=== PATIENT | male | born 1935 | race American Indian/Alaskan Native ===

== ENCOUNTER 2018-03-09 18:00 | Inpatient (IN) | payer MEDICARE ==
[2018-03-09 18:28] LABS: Hematocrit 28.6 % (35.5-45.6); Mean Corpuscular HGB Conc 32 % (32-34); Platelet Count 210 K/mm3 (140-440); Red Blood Count 4.72 M/mm3 (3.65-5.03)
[2018-03-09 18:31] LABS: Mean Corpuscular Hemoglobin 19 pg (28-32); Mean Corpuscular Volume 61 fl (84-94); Red Cell Distribution Width 24.1 % (13.2-15.2)
[2018-03-09] MEDS ORDERED: ASPIRIN PO ONE (18:31)
--- NOTE | 2018-03-09 18:32 | Emergency Department Report ---
ED Neuro Deficit HPI - General Chief Complaint: Neuro Symptoms/Deficit Stated Complaint: SLUR SPEECH Time Seen by Provider: 03/09/18 18:17 Source: patient, family Mode of arrival: Ambulatory Limitations: No Limitations - History of Present Illness Initial Comments: 82-year-old male with a past medical history of hypertension presents to the hospital with possible stroke symptoms. Patient lives at assisted living facility. His daughter lives and is present since 4 PM but they actually did not have a phone conversation until 5 PM. During this time she noticed that his face was twisted, his speech was not fluent and he hand he has difficulty communicating. Patient states he noticed it this morning after breakfast and thought that it would clear up throughout the day. No pain or previous stroke reported. Patient's compliant with his medications. Daughter states he does not take a daily aspirin. No pain reported. - Related Data Home Medications: Home Medications Medication Instructions Recorded Confirmed Last Taken prednisoLONE ACETATE [Omnipred 1% 1 - 2 drop OP QID 02/26/14 05/02/14 Unknown Eye Drops] Acetaminophen [Acetaminophen TAB] 500 mg PO BID 05/02/14 05/02/14 05/02/14 Docusate Sodium [Colace] 100 mg PO BID 05/02/14 05/02/14 05/02/14 HYDROcodone/ACETAMINOPHEN 5 mg PO Q4H PRN 05/02/14 05/02/14 Unknown [Hydrocodon-Acetaminophen 5-325] Losartan/Hydrochlorothiazide 50 mg PO DAILY 05/02/14 05/02/14 05/02/14 [Hyzaar 50-12.5 TAB] Previous Rx's Medication Instructions Recorded Last Taken Type Ciprofloxacin HCl [Ciprofloxacin 500 mg PO Q12H #20 tab 03/05/14 05/02/14 Rx TAB] Allergies/Adverse Reactions: Allergies Allergy/AdvReac Type Severity Reaction Status Date / Time No Known Allergies Allergy Unverified 04/07/13 09:22 ED Review of Systems ROS: Stated complaint: SLUR SPEECH Other details as noted in HPI Comment: All other systems reviewed and negative ED Past Medical Hx - Past Medical History Previous Medical History?: Yes Hx Hypertension: Yes Additional medical history: enlarged prostate - Surgical History Additional Surgical History: "prostate surgery" & "cataract surgery" - Social History Smoking Status: Never Smoker - Medications Home Medications: Home Medications Medication Instructions Recorded Confirmed Last Taken Type prednisoLONE ACETATE [Omnipred 1% 1 - 2 drop OP QID 02/26/14 05/02/14 Unknown History Eye Drops] Ciprofloxacin HCl [Ciprofloxacin 500 mg PO Q12H #20 tab 03/05/14 05/02/14 Rx TAB] Acetaminophen [Acetaminophen TAB] 500 mg PO BID 05/02/14 05/02/14 05/02/14 History Docusate Sodium [Colace] 100 mg PO BID 05/02/14 05/02/14 05/02/14 History HYDROcodone/ACETAMINOPHEN 5 mg PO Q4H PRN 05/02/14 05/02/14 Unknown History [Hydrocodon-Acetaminophen 5-325] Losartan/Hydrochlorothiazide 50 mg PO DAILY 05/02/14 05/02/14 05/02/14 History [Hyzaar 50-12.5 TAB] ED Neuro Physical Exam - General Limitations: No Limitations Suspected Stroke: Yes - NIHSS Assessment Interval: Baseline 1a. Level of Consciousness: alert/keenly responsive 1b. LOC Questions: answers both correctly 1c. LOC Commands: performs tasks correctly 2. Best Gaze: normal 3. Visual: no visual loss 4. Facial Palsy: minor paralysis (left) 5b. Motor Arm Right: no drift 5a. Motor Arm Left: no drift 6a. Motor Leg Left: no drift 6b. Motor Leg Right: no drift 7. Limb Ataxia: absent 8. Sensory: normal 9. Best Language: no aphasia 10. Dysarthria: mild/moderate dysarthria 11. Extinction/Inattention: no abnormality Total Score: 2 Stroke Severity: Minor Stroke - Other Other exam information: General: No limitations, patient is alert in no acute distress Head exam: Atraumatic, normocephalic Eyes exam: Normal appearance, pupils equal reactive to light, extraocular movements intact ENT: Moist mucous membrane Neck exam: Normal inspection, full range of motion, no meningismus nontender Respiratory exam: Clear to auscultation bilateral, no wheezes, rales, crackles Cardiovascular: Normal rate and rhythm, normal heart sounds Abdomen: Soft, nondistended, and nontender, with normal bowel sounds, no rebound, or guarding Extremity: Full range of motion normal inspection no deformity Back: Normal Inspection, full range of motion, no tenderness Neurologic: Alert, oriented x3, C and I a stroke scale Psychiatric: normal affect, normal mood Skin: Warm, dry, intact ED Course Vital Signs 10/05/18 10/05/18 10/05/18 18:04 18:28 18:30 Pulse Rate 75 78 Respiratory 18 16 16 Rate Blood Pressure 159/96 Blood Pressure 162/96 [Left] O2 Sat by Pulse 97 98 Oximetry - Consultations Consultation #1: 03/09/18 18:20 case d/w Dr Brown, rec admit for cva workup - Lab Data Result diagrams: 03/09/18 18:24 03/09/18 18:24 Lab Results 03/09/18 03/09/18 03/09/18 Range/Units 18:24 18:24 18:24 WBC 5.2 (4.5-11.0) K/mm3 RBC 4.72 (3.65-5.03) M/mm3 Hgb 9.0 L (11.8-15.2) gm/dl Hct 28.6 L (35.5-45.6) % MCV 61 L (84-94) fl MCH 19 L (28-32) pg MCHC 32 (32-34) % RDW 24.1 H (13.2-15.2) % Plt Count 210 (140-440) K/mm3 Lymph % (Auto) Supervisor Propellant Charge Loading Seg Neutrophils % Supervisor Propellant Charge Loading PT 14.1 (12.2-14.9) Sec. INR 1.04 (0.87-1.13) APTT 30.0 (24.2-36.6) Sec. Thrombin Time (15.1-19.6) Sec. Sodium 144 (137-145) mmol/L Potassium 3.9 (3.6-5.0) mmol/L Chloride 108.7 H (98-107) mmol/L Carbon Dioxide 25 (22-30) mmol/L Anion Gap 14 mmol/L BUN 8 L (9-20) mg/dL Creatinine 1.0 (0.8-1.5) mg/dL Estimated GFR > 60 ml/min BUN/Creatinine Ratio 8 % Glucose 98 (75-100) mg/dL Calcium 8.9 (8.4-10.2) mg/dL Troponin T < 0.010 (0.00-0.029) ng/mL 03/09/18 Range/Units 18:24 WBC (4.5-11.0) K/mm3 RBC (3.65-5.03) M/mm3 Hgb (11.8-15.2) gm/dl Hct (35.5-45.6) % MCV (84-94) fl MCH (28-32) pg MCHC (32-34) % RDW (13.2-15.2) % Plt Count (140-440) K/mm3 Lymph % (Auto) Seg Neutrophils % PT (12.2-14.9) Sec. INR (0.87-1.13) APTT (24.2-36.6) Sec. Thrombin Time 17.0 (15.1-19.6) Sec. 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 White matter changes most likely representing areas of chronic post ischemic demyelination/small vessel disease - Medical Decision Making Patient presents with neurologic deficits outside of the time period for TPA Patient passed a swallow screen and aspirin provided Case discussed with the tele neurologist Patient will be admitted to the hospital for further stroke workup and evaluation - Differential Diagnosis CVA, ICH, TIA, intracranial mass Critical Care Time: No Critical care attestation.: If time is entered above; I have spent that time in minutes in the direct care of this critically ill patient, excluding procedure time. ED Disposition Clinical Impression: Slurred speech, Facial droop, HTN (hypertension) Disposition: OP ADMIT IP TO THIS HOSP Is pt being admited?: Yes Does the pt Need Aspirin: Yes Condition: Stable Time of Disposition: 19:02 (Dr De La Cruz/hosp)
--- NOTE | 2018-03-09 18:32 | Cat Scan Report ---
FINAL REPORT EXAM: CT HEAD/BRAIN WO CON HISTORY: neuro deficits < 6hrs or sx present upon awakening TECHNIQUE: 2.5 millimeter axial images from the skullbase to the vertex. Comparison: None FINDINGS: Low attenuation in the subcortical and deep white matter of the cerebral hemispheres bilaterally most likely represent areas of chronic post ischemic demyelination/small vessel disease. There is no CT evidence of an acute intracranial process and no evidence of intracranial hemorrhage or mass effect. The ventricles are normal size. There is atherosclerotic vascular calcification of the internal carotid arteries bilaterally and left vertebral artery and basilar artery at the skullbase. The visualized portions of the orbits, paranasal and mastoid sinuses are unremarkable. The bony structures are unremarkable in appearance. IMPRESSION: 1. No evidence of an acute intracranial process, intracranial hemorrhage or mass effect. 2. White matter changes that most likely represent areas of chronic post ischemic demyelination/small vessel disease. If there is a clinical suspicion of acute cerebral ischemia, MRI brain may be helpful for further evaluation. The findings of no CT evidence of acute infarct and no evidence of intracranial hemorrhage were relayed to Dr. Martínez at 6:30 p.m. March 09, 2018.
[2018-03-09 18:41] LABS: INR 1.04 (0.87-1.13)
[2018-03-09 18:52] LABS: BUN/Creatinine Ratio 8; Blood Urea Nitrogen 8 mg/dL (9-20); Calcium 8.9 mg/dL (8.4-10.2); Hemolysis Index 10
[2018-03-09 19:27] LABS: Anisocytosis 3+; Hypochromasia 1+; Macrocytosis 1+; Schistocytes Rare; Total Cells Counted 100
[2018-03-09 19:28] LABS: Platelet Estimate A; Stomatocytes Rare; Target Cells Few
[2018-03-09] MEDS ORDERED: SODIUM CHLORIDE FLUSH SYRINGE 10 ML IV PRN (22:58)
[2018-03-09] MEDS ORDERED: APRESOLINE IV PRN (22:58)
[2018-03-09] MEDS ORDERED: ZOFRAN IV PRN (23:19)
[2018-03-09] MEDS ORDERED: TYLENOL PO PRN (23:19)
--- NOTE | 2018-03-10 01:00 | History and Physical Report ---
History of Present Illness Date of examination: 03/09/18 Date of admission: 03/09/18 19:16 Chief complaint: slurred speech History of present illness: Pt is an 82-year-old male with PMHx of hypertension who presents to the ER with c/o slurred speech and difficulty speaking x1 day. Patient resides in an assisted living facility, he states that his slurred speech started in the morning and didn't get better. Pt's daughter states that she noticed the symptoms in the afternoon, pt's speech was slurred and he was having difficulty to speak, the daughter ask to bring him to the hospital to be evaluated for possible stroke symptoms. Pt was seen in room, alert and orientated, he is able to provide medical history, memory intact, he admits to slurred speech, but states that he has no trouble finding words, he denies LOC, denies headache, denies dizziness, denies any recent illness. Pt denies history of previous stroke, he denies numbness or weakness. In the ER his CT scan was negative, he was admitted for TIA to r/o CVA. Past History Past Medical History: hypertension, other (BPH) Past Surgical History: No surgical history Social history: other (lives in an assisted living facility) Family history: no significant family history Medications and Allergies Allergies Allergy/AdvReac Type Severity Reaction Status Date / Time No Known Allergies Allergy Unverified 04/07/13 09:22 Home Medications Medication Instructions Recorded Confirmed Last Taken Type prednisoLONE ACETATE [Omnipred 1% 1 - 2 drop OP QID 02/26/14 05/02/14 Unknown History Eye Drops] Ciprofloxacin HCl [Ciprofloxacin 500 mg PO Q12H #20 tab 03/05/14 05/02/14 Rx TAB] Acetaminophen [Acetaminophen TAB] 500 mg PO BID 05/02/14 05/02/14 05/02/14 History Docusate Sodium [Colace] 100 mg PO BID 05/02/14 05/02/14 05/02/14 History HYDROcodone/ACETAMINOPHEN 5 mg PO Q4H PRN 05/02/14 05/02/14 Unknown History [Hydrocodon-Acetaminophen 5-325] Losartan/Hydrochlorothiazide 50 mg PO DAILY 05/02/14 05/02/14 05/02/14 History [Hyzaar 50-12.5 TAB] Active Meds: Active Medications Acetaminophen (Tylenol) 650 mg PO Q4H PRN PRN Reason: Pain MILD(1-3)/Fever >100.5/YADAV Atorvastatin Calcium (Lipitor) 40 mg PO QHS [place]KE Hydralazine HCl (Apresoline) 5 mg IV Q6H PRN PRN Reason: Keep SBP between 160-185 mm Hg Ondansetron HCl (Zofran) 4 mg IV Q8H PRN PRN Reason: Nausea And Vomiting Sodium Chloride (Sodium Chloride Flush Syringe 10 Ml) 10 ml IV PRN PRN PRN Reason: LINE FLUSH Review of Systems Ears, nose, mouth and throat: other (slurred speech) Exam - Constitutional Vitals: Temp Pulse Resp BP Pulse Ox 97.9 F 67 18 131/78 100 03/10/18 00:04 03/10/18 00:04 03/10/18 00:04 03/10/18 00:04 03/10/18 00:04 General appearance: Present: no acute distress - EENT Eyes: Present: EOM intact ENT: hearing intact - Neck Neck: Present: normal ROM - Respiratory Respiratory effort: normal - Cardiovascular Rhythm: regular - Extremities Extremities: pulses symmetrical, No edema, normal color Peripheral Pulses: within normal limits - Abdominal General gastrointestinal: Present: soft, non-tender, non-distended, normal bowel sounds - Rectal Rectal Exam: deferred - Integumentary Integumentary: Present: warm, dry - Musculoskeletal Musculoskeletal: generalized weakness - Psychiatric Psychiatric: cooperative - Neurologic Neurologic: moves all extremities Results - Labs CBC & Chem 7: 03/09/18 18:24 03/09/18 18:24 Labs: Laboratory Last Values WBC 5.2 K/mm3 (4.5-11.0) 03/09/18 18:24 RBC 4.72 M/mm3 (3.65-5.03) 03/09/18 18:24 Hgb 9.0 gm/dl (11.8-15.2) L 03/09/18 18:24 Hct 28.6 % (35.5-45.6) L 03/09/18 18:24 MCV 61 fl (84-94) L 03/09/18 18:24 MCH 19 pg (28-32) L 03/09/18 18:24 MCHC 32 % (32-34) 03/09/18 18:24 RDW 24.1 % (13.2-15.2) H 03/09/18 18:24 Plt Count 210 K/mm3 (140-440) 03/09/18 18:24 Lymph % (Auto) Audiovisual Production Specialist 03/09/18 18:24 Add Manual Diff Complete 03/09/18 18:24 Total Counted 100 03/09/18 18:24 Seg Neutrophils % Audiovisual Production Specialist 03/09/18 18:24 Seg Neuts % (Manual) 30.0 % (40.0-70.0) L 03/09/18 18:24 Band Neutrophils % 0 % 03/09/18 18:24 Lymphocytes % (Manual) 49.0 % (13.4-35.0) H 03/09/18 18:24 Reactive Lymphs % (Man) 0 % 03/09/18 18:24 Monocytes % (Manual) 9.0 % (0.0-7.3) H 03/09/18 18:24 Eosinophils % (Manual) 9.0 % (0.0-4.3) H 03/09/18 18:24 Basophils % (Manual) 3.0 % (0.0-1.8) H 03/09/18 18:24 Metamyelocytes % 0 % 03/09/18 18:24 Myelocytes % 0 % 03/09/18 18:24 Promyelocytes % 0 % 03/09/18 18:24 Blast Cells % 0 % 03/09/18 18:24 Nucleated RBC % Not Reportable 03/09/18 18:24 Seg Neutrophils # Man 1.6 K/mm3 (1.8-7.7) L 03/09/18 18:24 Band Neutrophils # 0.0 K/mm3 03/09/18 18:24 Lymphocytes # (Manual) 2.5 K/mm3 (1.2-5.4) 03/09/18 18:24 Abs React Lymphs (Man) 0.0 K/mm3 03/09/18 18:24 Monocytes # (Manual) 0.5 K/mm3 (0.0-0.8) 03/09/18 18:24 Eosinophils # (Manual) 0.5 K/mm3 (0.0-0.4) H 03/09/18 18:24 Basophils # (Manual) 0.2 K/mm3 (0.0-0.1) H 03/09/18 18:24 Metamyelocytes # 0.0 K/mm3 03/09/18 18:24 Myelocytes # 0.0 K/mm3 03/09/18 18:24 Promyelocytes # 0.0 K/mm3 03/09/18 18:24 Blast Cells # 0.0 K/mm3 03/09/18 18:24 WBC Morphology Not Reportable 03/09/18 18:24 Hypersegmented Neuts Not Reportable 03/09/18 18:24 Hyposegmented Neuts Not Reportable 03/09/18 18:24 Hypogranular Neuts Not Reportable 03/09/18 18:24 Smudge Cells Not Reportable 03/09/18 18:24 Toxic Granulation Not Reportable 03/09/18 18:24 Toxic Vacuolation Not Reportable 03/09/18 18:24 Dohle Bodies Not Reportable 03/09/18 18:24 Pelger-Huet Anomaly Not Reportable 03/09/18 18:24 Jackie Rods Not Reportable 03/09/18 18:24 Platelet Estimate A 03/09/18 18:24 Clumped Platelets Not Reportable 03/09/18 18:24 Plt Clumps, EDTA Not Reportable 03/09/18 18:24 Large Platelets Not Reportable 03/09/18 18:24 Giant Platelets Not Reportable 03/09/18 18:24 Platelet Satelliting Not Reportable 03/09/18 18:24 Plt Morphology Comment Not Reportable 03/09/18 18:24 RBC Morphology Not Reportable 03/09/18 18:24 Dimorphic RBCs Not Reportable 03/09/18 18:24 Polychromasia Not Reportable 03/09/18 18:24 Hypochromasia 1+ 03/09/18 18:24 Poikilocytosis Not Reportable 03/09/18 18:24 Anisocytosis 3+ 03/09/18 18:24 Microcytosis 2+ 03/09/18 18:24 Macrocytosis 1+ 03/09/18 18:24 Spherocytes Not Reportable 03/09/18 18:24 Pappenheimer Bodies Not Reportable 03/09/18 18:24 Sickle Cells Not Reportable 03/09/18 18:24 Target Cells Few 03/09/18 18:24 Tear Drop Cells Not Reportable 03/09/18 18:24 Ovalocytes Not Reportable 03/09/18 18:24 Stomatocytes Rare 03/09/18 18:24 Helmet Cells Not Reportable 03/09/18 18:24 [place] Bodies Not Reportable 03/09/18 18:24 [place] Rings Not Reportable 03/09/18 18:24 [place] Cells Not Reportable 03/09/18 18:24 Bite Cells Not Reportable 03/09/18 18:24 Crenated Cell Not Reportable 03/09/18 18:24 Elliptocytes Few 03/09/18 18:24 Acanthocytes (Spur) Not Reportable 03/09/18 18:24 Rouleaux Not Reportable 03/09/18 18:24 Hemoglobin C Crystals Not Reportable 03/09/18 18:24 Schistocytes Rare 03/09/18 18:24 Malaria parasites Not Reportable 03/09/18 18:24 Kareem Bodies Not Reportable 03/09/18 18:24 Hem Pathologist Commnt No 03/09/18 18:24 PT 14.1 Sec. (12.2-14.9) 03/09/18 18:24 INR 1.04 (0.87-1.13) 03/09/18 18:24 APTT 30.0 Sec. (24.2-36.6) 03/09/18 18:24 Thrombin Time 17.0 Sec. (15.1-19.6) 03/09/18 18:24 Sodium 144 mmol/L (137-145) 03/09/18 18:24 Potassium 3.9 mmol/L (3.6-5.0) 03/09/18 18:24 Chloride 108.7 mmol/L (98-107) H 03/09/18 18:24 Carbon Dioxide 25 mmol/L (22-30) 03/09/18 18:24 Anion Gap 14 mmol/L 03/09/18 18:24 BUN 8 mg/dL (9-20) L 03/09/18 18:24 Creatinine 1.0 mg/dL (0.8-1.5) 03/09/18 18:24 Estimated GFR > 60 ml/min 03/09/18 18:24 BUN/Creatinine Ratio 8 % 03/09/18 18:24 Glucose 98 mg/dL (75-100) 03/09/18 18:24 POC Glucose 116 (70-105) H 03/09/18 18:03 Calcium 8.9 mg/dL (8.4-10.2) 03/09/18 18:24 Troponin T < 0.010 ng/mL (0.00-0.029) 03/09/18 18:24 Assessment and Plan Assessment and plan: 1. TIA/r/o CVA 2. Uncontrolled HTN 3. BPH Plan Admit to [facility] Neuro check q4hrs Monitor VS, BP MRI of the brain to f/u CT scan Bilateral carotid US 2D echocardiogram Speech therapy eval in am for slurred speech PT/OT to eval in am Lipid panel PRN Zofran, tylenol Hydralyzine PRN for BP control Resume home meds DVT prophylaxis with SD Further plan per hospital course Pt's condition and plan of care of care discussed with the attending Advance Directives: Yes VTE prophylaxis?: Chemical Plan of care discussed with patient/family: Yes
[2018-03-10 01:23] LABS: Creatine Kinase MB 1.3 ng/mL (0.0-4.0)
[2018-03-10 05:44] LABS: Chol/HDL Ratio 3.25 %
[2018-03-10 06:08] LABS: Creatine Kinase MB 1.3 ng/mL (0.0-4.0)
[2018-03-10] MEDS ORDERED: ASPIRIN PR SCH (10:00)
[2018-03-10] MEDS: ASPIRIN PO SCH (13:59)
--- NOTE | 2018-03-10 14:01 | Progress Note ---
Assessment and Plan Assessment and plan: TIA r/o CVA -On stroke protocol -CT head negative -MRI brain, echocardiogram and carotid Doppler ultrasound pending Uncontrolled HTN -BP Improved Chronic anemia -H/H stable Disp: For discharge after pending investigative testings are completed. History Interval history: Patient reports feeling better. His slurred speech has improved. Hospitalist Physical - Constitutional Vitals: Temp Pulse Resp BP Pulse Ox 97.9 F 81 18 133/78 100 03/10/18 12:11 03/10/18 11:24 03/10/18 12:11 03/10/18 12:11 03/10/18 10:00 General appearance: Present: no acute distress - EENT Eyes: Present: PERRL, EOM intact ENT: hearing intact, clear oral mucosa - Neck Neck: Present: supple - Respiratory Respiratory effort: normal Respiratory: bilateral: CTA - Cardiovascular Rhythm: regular Heart Sounds: Present: S1 & S2 - Extremities Extremities: No edema - Abdominal General gastrointestinal: soft, non-tender, non-distended, normal bowel sounds - Neurologic Neurologic: moves all extremities Results - Labs CBC & Chem 7: 03/09/18 18:24 03/09/18 18:24 Labs: Laboratory Last Values WBC 5.2 K/mm3 (4.5-11.0) 03/09/18 18:24 RBC 4.72 M/mm3 (3.65-5.03) 03/09/18 18:24 Hgb 9.0 gm/dl (11.8-15.2) L 03/09/18 18:24 Hct 28.6 % (35.5-45.6) L 03/09/18 18:24 MCV 61 fl (84-94) L 03/09/18 18:24 MCH 19 pg (28-32) L 03/09/18 18:24 MCHC 32 % (32-34) 03/09/18 18:24 RDW 24.1 % (13.2-15.2) H 03/09/18 18:24 Plt Count 210 K/mm3 (140-440) 03/09/18 18:24 Lymph % (Auto) Electrician Crane Maintenance 03/09/18 18:24 Add Manual Diff Complete 03/09/18 18:24 Total Counted 100 03/09/18 18:24 Seg Neutrophils % Electrician Crane Maintenance 03/09/18 18:24 Seg Neuts % (Manual) 30.0 % (40.0-70.0) L 03/09/18 18:24 Band Neutrophils % 0 % 03/09/18 18:24 Lymphocytes % (Manual) 49.0 % (13.4-35.0) H 18 18:24 Reactive Lymphs % (Man) 0 % 03/09/18 18:24 Monocytes % (Manual) 9.0 % (0.0-7.3) H 03/09/18 18:24 Eosinophils % (Manual) 9.0 % (0.0-4.3) H 03/09/18 18:24 Basophils % (Manual) 3.0 % (0.0-1.8) H 03/09/18 18:24 Metamyelocytes % 0 % 03/09/18 18:24 Myelocytes % 0 % 03/09/18 18:24 Promyelocytes % 0 % 03/09/18 18:24 Blast Cells % 0 % 03/09/18 18:24 Nucleated RBC % Not Reportable 03/09/18 18:24 Seg Neutrophils # Man 1.6 K/mm3 (1.8-7.7) L 03/09/18 18:24 Band Neutrophils # 0.0 K/mm3 03/09/18 18:24 Lymphocytes # (Manual) 2.5 K/mm3 (1.2-5.4) 03/09/18 18:24 Abs React Lymphs (Man) 0.0 K/mm3 03/09/18 18:24 Monocytes # (Manual) 0.5 K/mm3 (0.0-0.8) 03/09/18 18:24 Eosinophils # (Manual) 0.5 K/mm3 (0.0-0.4) H 03/09/18 18:24 Basophils # (Manual) 0.2 K/mm3 (0.0-0.1) H 03/09/18 18:24 Metamyelocytes # 0.0 K/mm3 03/09/18 18:24 Myelocytes # 0.0 K/mm3 03/09/18 18:24 Promyelocytes # 0.0 K/mm3 03/09/18 18:24 Blast Cells # 0.0 K/mm3 03/09/18 18:24 WBC Morphology Not Reportable 03/09/18 18:24 Hypersegmented Neuts Not Reportable 03/09/18 18:24 Hyposegmented Neuts Not Reportable 03/09/18 18:24 Hypogranular Neuts Not Reportable 03/09/18 18:24 Smudge Cells Not Reportable 03/09/18 18:24 Toxic Granulation Not Reportable 03/09/18 18:24 Toxic Vacuolation Not Reportable 03/09/18 18:24 Dohle Bodies Not Reportable 03/09/18 18:24 Pelger-Huet Anomaly Not Reportable 03/09/18 18:24 Jackie Rods Not Reportable 03/09/18 18:24 Platelet Estimate A 03/09/18 18:24 Clumped Platelets Not Reportable 03/09/18 18:24 Plt Clumps, EDTA Not Reportable 03/09/18 18:24 Large Platelets Not Reportable 03/09/18 18:24 Giant Platelets Not Reportable 03/09/18 18:24 Platelet Satelliting Not Reportable 03/09/18 18:24 Plt Morphology Comment Not Reportable 03/09/18 18:24 RBC Morphology Not Reportable 03/09/18 18:24 Dimorphic RBCs Not Reportable 03/09/18 18:24 Polychromasia Not Reportable 03/09/18 18:24 Hypochromasia 1+ 03/09/18 18:24 Poikilocytosis Not Reportable 03/09/18 18:24 Anisocytosis 3+ 03/09/18 18:24 Microcytosis 2+ 03/09/18 18:24 Macrocytosis 1+ 03/09/18 18:24 Spherocytes Not Reportable 03/09/18 18:24 Pappenheimer Bodies Not Reportable 03/09/18 18:24 Sickle Cells Not Reportable 03/09/18 18:24 Target Cells Few 03/09/18 18:24 Tear Drop Cells Not Reportable 03/09/18 18:24 Ovalocytes Not Reportable 03/09/18 18:24 Stomatocytes Rare 03/09/18 18:24 Helmet Cells Not Reportable 03/09/18 18:24 [place] Bodies Not Reportable 03/09/18 18:24 [place] Rings Not Reportable 03/09/18 18:24 [place] Cells Not Reportable 03/09/18 18:24 Bite Cells Not Reportable 03/09/18 18:24 Crenated Cell Not Reportable 03/09/18 18:24 Elliptocytes Few 03/09/18 18:24 Acanthocytes (Spur) Not Reportable 03/09/18 18:24 Rouleaux Not Reportable 03/09/18 18:24 Hemoglobin C Crystals Not Reportable 03/09/18 18:24 Schistocytes Rare 03/09/18 18:24 Malaria parasites Not Reportable 03/09/18 18:24 Kareem Bodies Not Reportable 03/09/18 18:24 Hem Pathologist Commnt No 03/09/18 18:24 PT 14.1 Sec. (12.2-14.9) 03/09/18 18:24 INR 1.04 (0.87-1.13) 03/09/18 18:24 APTT 30.0 Sec. (24.2-36.6) 03/09/18 18:24 Thrombin Time 17.0 Sec. (15.1-19.6) 03/09/18 18:24 Sodium 144 mmol/L (137-145) 03/09/18 18:24 Potassium 3.9 mmol/L (3.6-5.0) 03/09/18 18:24 Chloride 108.7 mmol/L (98-107) H 03/09/18 18:24 Carbon Dioxide 25 mmol/L (22-30) 03/09/18 18:24 Anion Gap 14 mmol/L 03/09/18 18:24 BUN 8 mg/dL (9-20) L 03/09/18 18:24 Creatinine 1.0 mg/dL (0.8-1.5) 03/09/18 18:24 Estimated GFR > 60 ml/min 03/09/18 18:24 BUN/Creatinine Ratio 8 % 03/09/18 18:24 Glucose 98 mg/dL (75-100) 03/09/18 18:24 POC Glucose 95 (70-105) 03/10/18 12:10 Calcium 8.9 mg/dL (8.4-10.2) 03/09/18 18:24 Total Creatine Kinase 171 units/L (55-170) H 03/10/18 04:59 CK-MB (CK-2) 1.3 ng/mL (0.0-4.0) 03/10/18 04:59 CK-MB (CK-2) Rel Index 0.7 (0-4) 03/10/18 04:59 Troponin T < 0.010 ng/mL (0.00-0.029) 03/09/18 18:24 Triglycerides 58 mg/dL (2-149) 03/10/18 03:57 Cholesterol 127 mg/dL (50-199) 03/10/18 03:57 LDL Cholesterol Direct 80 mg/dL (50-130) 03/10/18 03:57 HDL Cholesterol 39 mg/dL (40-59) L 03/10/18 03:57 Cholesterol/HDL Ratio 3.25 % 03/10/18 03:57
[2018-03-11] MEDS: ASPIRIN PO SCH (09:16)
--- NOTE | 2018-03-11 13:44 | Progress Note ---
Assessment and Plan Assessment and plan: TIA r/o CVA -On stroke protocol -CT head negative -MRI brain, echocardiogram and carotid Doppler ultrasound pending -Discussed finding with the daughter anticipate discharge in am Uncontrolled HTN -BP Improved Chronic anemia -H/H stable Disp: For discharge after pending investigative testings are completed. History Interval history: Patient seen and examined, in no acute distress. Daughter at bedside. Hospitalist Physical - Constitutional Vitals: Temp Pulse Resp BP Pulse Ox 98.4 F 88 20 155/88 95 03/11/18 08:00 03/11/18 10:00 03/11/18 10:00 03/11/18 08:00 03/11/18 10:00 General appearance: Present: no acute distress Results - Labs CBC & Chem 7: 03/09/18 18:24 03/09/18 18:24 Labs: Laboratory Last Values WBC 5.2 K/mm3 (4.5-11.0) 03/09/18 18:24 RBC 4.72 M/mm3 (3.65-5.03) 03/09/18 18:24 Hgb 9.0 gm/dl (11.8-15.2) L 03/09/18 18:24 Hct 28.6 % (35.5-45.6) L 03/09/18 18:24 MCV 61 fl (84-94) L 03/09/18 18:24 MCH 19 pg (28-32) L 03/09/18 18:24 MCHC 32 % (32-34) 03/09/18 18:24 RDW 24.1 % (13.2-15.2) H 03/09/18 18:24 Plt Count 210 K/mm3 (140-440) 03/09/18 18:24 Lymph % (Auto) Science Job Titles 03/09/18 18:24 Add Manual Diff Complete 03/09/18 18:24 Total Counted 100 03/09/18 18:24 Seg Neutrophils % Science Job Titles 03/09/18 18:24 Seg Neuts % (Manual) 30.0 % (40.0-70.0) L 03/09/18 18:24 Band Neutrophils % 0 % 03/09/18 18:24 Lymphocytes % (Manual) 49.0 % (13.4-35.0) H 03/09/18 18:24 Reactive Lymphs % (Man) 0 % 03/09/18 18:24 Monocytes % (Manual) 9.0 % (0.0-7.3) H 03/09/18 18:24 Eosinophils % (Manual) 9.0 % (0.0-4.3) H 03/09/18 18:24 Basophils % (Manual) 3.0 % (0.0-1.8) H 03/09/18 18:24 Metamyelocytes % 0 % 03/09/18 18:24 Myelocytes % 0 % 03/09/18 18:24 Promyelocytes % 0 % 03/09/18 18:24 Blast Cells % 0 % 03/09/18 18:24 Nucleated RBC % Not Reportable 03/09/18 18:24 Seg Neutrophils # Man 1.6 K/mm3 (1.8-7.7) L 03/09/18 18:24 Band Neutrophils # 0.0 K/mm3 03/09/18 18:24 Lymphocytes # (Manual) 2.5 K/mm3 (1.2-5.4) 03/09/18 18:24 Abs React Lymphs (Man) 0.0 K/mm3 03/09/18 18:24 Monocytes # (Manual) 0.5 K/mm3 (0.0-0.8) 03/09/18 18:24 Eosinophils # (Manual) 0.5 K/mm3 (0.0-0.4) H 03/09/18 18:24 Basophils # (Manual) 0.2 K/mm3 (0.0-0.1) H 03/09/18 18:24 Metamyelocytes # 0.0 K/mm3 03/09/18 18:24 Myelocytes # 0.0 K/mm3 03/09/18 18:24 Promyelocytes # 0.0 K/mm3 03/09/18 18:24 Blast Cells # 0.0 K/mm3 03/09/18 18:24 WBC Morphology Not Reportable 03/09/18 18:24 Hypersegmented Neuts Not Reportable 03/09/18 18:24 Hyposegmented Neuts Not Reportable 03/09/18 18:24 Hypogranular Neuts Not Reportable 03/09/18 18:24 Smudge Cells Not Reportable 03/09/18 18:24 Toxic Granulation Not Reportable 03/09/18 18:24 Toxic Vacuolation Not Reportable 03/09/18 18:24 Dohle Bodies Not Reportable 03/09/18 18:24 Pelger-Huet Anomaly Not Reportable 03/09/18 18:24 Jackie Rods Not Reportable 03/09/18 18:24 Platelet Estimate A 03/09/18 18:24 Clumped Platelets Not Reportable 03/09/18 18:24 Plt Clumps, EDTA Not Reportable 03/09/18 18:24 Large Platelets Not Reportable 03/09/18 18:24 Giant Platelets Not Reportable 03/09/18 18:24 Platelet Satelliting Not Reportable 03/09/18 18:24 Plt Morphology Comment Not Reportable 03/09/18 18:24 RBC Morphology Not Reportable 03/09/18 18:24 Dimorphic RBCs Not Reportable 03/09/18 18:24 Polychromasia Not Reportable 03/09/18 18:24 Hypochromasia 1+ 03/09/18 18:24 Poikilocytosis Not Reportable 03/09/18 18:24 Anisocytosis 3+ 03/09/18 18:24 Microcytosis 2+ 03/09/18 18:24 Macrocytosis 1+ 03/09/18 18:24 Spherocytes Not Reportable 03/09/18 18:24 Pappenheimer Bodies Not Reportable 03/09/18 18:24 Sickle Cells Not Reportable 03/09/18 18:24 Target Cells Few 03/09/18 18:24 Tear Drop Cells Not Reportable 03/09/18 18:24 Ovalocytes Not Reportable 03/09/18 18:24 Stomatocytes Rare 03/09/18 18:24 Helmet Cells Not Reportable 03/09/18 18:24 Lyons-Stout Bodies Not Reportable 03/09/18 18:24 [place] Rings Not Reportable 03/09/18 18:24 [place] Cells Not Reportable 03/09/18 18:24 Bite Cells Not Reportable 03/09/18 18:24 Crenated Cell Not Reportable 03/09/18 18:24 Elliptocytes Few 03/09/18 18:24 Acanthocytes (Spur) Not Reportable 03/09/18 18:24 Rouleaux Not Reportable 03/09/18 18:24 Hemoglobin C Crystals Not Reportable 03/09/18 18:24 Schistocytes Rare 03/09/18 18:24 Malaria parasites Not Reportable 03/09/18 18:24 Kareem Bodies Not Reportable 03/09/18 18:24 Hem Pathologist Commnt No 03/09/18 18:24 PT 14.1 Sec. (12.2-14.9) 03/09/18 18:24 INR 1.04 (0.87-1.13) 03/09/18 18:24 APTT 30.0 Sec. (24.2-36.6) 03/09/18 18:24 Thrombin Time 17.0 Sec. (15.1-19.6) 03/09/18 18:24 Sodium 144 mmol/L (137-145) 03/09/18 18:24 Potassium 3.9 mmol/L (3.6-5.0) 03/09/18 18:24 Chloride 108.7 mmol/L (98-107) H 03/09/18 18:24 Carbon Dioxide 25 mmol/L (22-30) 03/09/18 18:24 Anion Gap 14 mmol/L 03/09/18 18:24 BUN 8 mg/dL (9-20) L 03/09/18 18:24 Creatinine 1.0 mg/dL (0.8-1.5) 03/09/18 18:24 Estimated GFR > 60 ml/min 03/09/18 18:24 BUN/Creatinine Ratio 8 % 03/09/18 18:24 Glucose 98 mg/dL (75-100) 03/09/18 18:24 POC Glucose 95 (70-105) 03/10/18 12:10 Calcium 8.9 mg/dL (8.4-10.2) 03/09/18 18:24 Total Creatine Kinase 171 units/L (55-170) H 03/10/18 04:59 CK-MB (CK-2) 1.3 ng/mL (0.0-4.0) 03/10/18 04:59 CK-MB (CK-2) Rel Index 0.7 (0-4) 03/10/18 04:59 Troponin T < 0.010 ng/mL (0.00-0.029) 03/09/18 18:24 Triglycerides 58 mg/dL (2-149) 03/10/18 03:57 Cholesterol 127 mg/dL (50-199) 03/10/18 03:57 LDL Cholesterol Direct 80 mg/dL (50-130) 03/10/18 03:57 HDL Cholesterol 39 mg/dL (40-59) L 03/10/18 03:57 Cholesterol/HDL Ratio 3.25 % 03/10/18 03:57
--- NOTE | 2018-03-11 13:45 | Progress Note ---
Assessment and Plan Assessment and plan: TIA r/o CVA -On stroke protocol -CT head negative -MRI brain, echocardiogram and carotid Doppler ultrasound pending -Discussed finding with the daughter anticipate discharge in am Uncontrolled HTN -BP Improved Chronic anemia -H/H stable Disp: For discharge after pending investigative testings are completed. History Interval history: Patient seen and examined, in no acute distress. Daughter at bedside. Hospitalist Physical - Constitutional Vitals: Temp Pulse Resp BP Pulse Ox 98.4 F 88 20 155/88 95 03/11/18 08:00 03/11/18 10:00 03/11/18 10:00 03/11/18 08:00 03/11/18 10:00 General appearance: Present: no acute distress, well-nourished - EENT Eyes: Present: PERRL, EOM intact - Neck Neck: Present: supple, normal ROM - Respiratory Respiratory effort: normal - Cardiovascular Rhythm: regular Heart Sounds: Present: S1 & S2. Absent: systolic murmur - Extremities Extremities: no ischemia, pulses intact, pulses symmetrical, No edema, normal temperature, normal color, Full ROM Peripheral Pulses: within normal limits - Integumentary Integumentary: Present: clear, warm, dry - Psychiatric Psychiatric: appropriate mood/affect, intact judgment & insight, cooperative - Neurologic Neurologic: CNII-XII intact, focal deficits, moves all extremities Results - Labs CBC & Chem 7: 03/09/18 18:24 03/09/18 18:24 Labs: Laboratory Last Values WBC 5.2 K/mm3 (4.5-11.0) 03/09/18 18:24 RBC 4.72 M/mm3 (3.65-5.03) 03/09/18 18:24 Hgb 9.0 gm/dl (11.8-15.2) L 03/09/18 18:24 Hct 28.6 % (35.5-45.6) L 03/09/18 18:24 MCV 61 fl (84-94) L 03/09/18 18:24 MCH 19 pg (28-32) L 03/09/18 18:24 MCHC 32 % (32-34) 03/09/18 18:24 RDW 24.1 % (13.2-15.2) H 03/09/18 18:24 Plt Count 210 K/mm3 (140-440) 18 18:24 Lymph % (Auto) Fireman 03/09/18 18:24 Add Manual Diff Complete 03/09/18 18:24 Total Counted 100 03/09/18 18:24 Seg Neutrophils % Fireman 18 18:24 Seg Neuts % (Manual) 30.0 % (40.0-70.0) L 18 18:24 Band Neutrophils % 0 % 03/09/18 18:24 Lymphocytes % (Manual) 49.0 % (13.4-35.0) H 18 18:24 Reactive Lymphs % (Man) 0 % 03/09/18 18:24 Monocytes % (Manual) 9.0 % (0.0-7.3) H 03/09/18 18:24 Eosinophils % (Manual) 9.0 % (0.0-4.3) H 03/09/18 18:24 Basophils % (Manual) 3.0 % (0.0-1.8) H 03/09/18 18:24 Metamyelocytes % 0 % 03/09/18 18:24 Myelocytes % 0 % 03/09/18 18:24 Promyelocytes % 0 % 03/09/18 18:24 Blast Cells % 0 % 03/09/18 18:24 Nucleated RBC % Not Reportable 03/09/18 18:24 Seg Neutrophils # Man 1.6 K/mm3 (1.8-7.7) L 03/09/18 18:24 Band Neutrophils # 0.0 K/mm3 03/09/18 18:24 Lymphocytes # (Manual) 2.5 K/mm3 (1.2-5.4) 03/09/18 18:24 Abs React Lymphs (Man) 0.0 K/mm3 03/09/18 18:24 Monocytes # (Manual) 0.5 K/mm3 (0.0-0.8) 03/09/18 18:24 Eosinophils # (Manual) 0.5 K/mm3 (0.0-0.4) H 18 18:24 Basophils # (Manual) 0.2 K/mm3 (0.0-0.1) H 03/09/18 18:24 Metamyelocytes # 0.0 K/mm3 03/09/18 18:24 Myelocytes # 0.0 K/mm3 03/09/18 18:24 Promyelocytes # 0.0 K/mm3 03/09/18 18:24 Blast Cells # 0.0 K/mm3 03/09/18 18:24 WBC Morphology Not Reportable 03/09/18 18:24 Hypersegmented Neuts Not Reportable 03/09/18 18:24 Hyposegmented Neuts Not Reportable 03/09/18 18:24 Hypogranular Neuts Not Reportable 03/09/18 18:24 Smudge Cells Not Reportable 03/09/18 18:24 Toxic Granulation Not Reportable 03/09/18 18:24 Toxic Vacuolation Not Reportable 03/09/18 18:24 Dohle Bodies Not Reportable 03/09/18 18:24 Pelger-Huet Anomaly Not Reportable 03/09/18 18:24 Jackie Rods Not Reportable 03/09/18 18:24 Platelet Estimate A 03/09/18 18:24 Clumped Platelets Not Reportable 03/09/18 18:24 Plt Clumps, EDTA Not Reportable 03/09/18 18:24 Large Platelets Not Reportable 03/09/18 18:24 Giant Platelets Not Reportable 03/09/18 18:24 Platelet Satelliting Not Reportable 03/09/18 18:24 Plt Morphology Comment Not Reportable 03/09/18 18:24 RBC Morphology Not Reportable 03/09/18 18:24 Dimorphic RBCs Not Reportable 03/09/18 18:24 Polychromasia Not Reportable 03/09/18 18:24 Hypochromasia 1+ 03/09/18 18:24 Poikilocytosis Not Reportable 03/09/18 18:24 Anisocytosis 3+ 03/09/18 18:24 Microcytosis 2+ 03/09/18 18:24 Macrocytosis 1+ 03/09/18 18:24 Spherocytes Not Reportable 03/09/18 18:24 Pappenheimer Bodies Not Reportable 03/09/18 18:24 Sickle Cells Not Reportable 03/09/18 18:24 Target Cells Few 03/09/18 18:24 Tear Drop Cells Not Reportable 03/09/18 18:24 Ovalocytes Not Reportable 03/09/18 18:24 Stomatocytes Rare 03/09/18 18:24 Helmet Cells Not Reportable 03/09/18 18:24 Lyons-Gaffney Bodies Not Reportable 03/09/18 18:24 [place] Rings Not Reportable 03/09/18 18:24 [place] Cells Not Reportable 03/09/18 18:24 Bite Cells Not Reportable 03/09/18 18:24 Crenated Cell Not Reportable 03/09/18 18:24 Elliptocytes Few 03/09/18 18:24 Acanthocytes (Spur) Not Reportable 03/09/18 18:24 Rouleaux Not Reportable 03/09/18 18:24 Hemoglobin C Crystals Not Reportable 03/09/18 18:24 Schistocytes Rare 03/09/18 18:24 Malaria parasites Not Reportable 03/09/18 18:24 Kareem Bodies Not Reportable 03/09/18 18:24 Hem Pathologist Commnt No 03/09/18 18:24 PT 14.1 Sec. (12.2-14.9) 03/09/18 18:24 INR 1.04 (0.87-1.13) 03/09/18 18:24 APTT 30.0 Sec. (24.2-36.6) 03/09/18 18:24 Thrombin Time 17.0 Sec. (15.1-19.6) 03/09/18 18:24 Sodium 144 mmol/L (137-145) 03/09/18 18:24 Potassium 3.9 mmol/L (3.6-5.0) 03/09/18 18:24 Chloride 108.7 mmol/L (98-107) H 03/09/18 18:24 Carbon Dioxide 25 mmol/L (22-30) 03/09/18 18:24 Anion Gap 14 mmol/L 03/09/18 18:24 BUN 8 mg/dL (9-20) L 03/09/18 18:24 Creatinine 1.0 mg/dL (0.8-1.5) 03/09/18 18:24 Estimated GFR > 60 ml/min 03/09/18 18:24 BUN/Creatinine Ratio 8 % 03/09/18 18:24 Glucose 98 mg/dL (75-100) 03/09/18 18:24 POC Glucose 95 (70-105) 03/10/18 12:10 Calcium 8.9 mg/dL (8.4-10.2) 03/09/18 18:24 Total Creatine Kinase 171 units/L (55-170) H 03/10/18 04:59 CK-MB (CK-2) 1.3 ng/mL (0.0-4.0) 03/10/18 04:59 CK-MB (CK-2) Rel Index 0.7 (0-4) 03/10/18 04:59 Troponin T < 0.010 ng/mL (0.00-0.029) 03/09/18 18:24 Triglycerides 58 mg/dL (2-149) 03/10/18 03:57 Cholesterol 127 mg/dL (50-199) 03/10/18 03:57 LDL Cholesterol Direct 80 mg/dL (50-130) 03/10/18 03:57 HDL Cholesterol 39 mg/dL (40-59) L 03/10/18 03:57 Cholesterol/HDL Ratio 3.25 % 03/10/18 03:57
--- NOTE | 2018-03-11 15:51 | Magnetic Resonance Report ---
FINAL REPORT PROCEDURE: MR BRAIN WO CON TECHNIQUE: Magnetic resonance imaging of the brain was performed without contrast material. HISTORY: stroke COMPARISON: No prior studies are available for comparison. FINDINGS: There is a linear area of restricted diffusion in the anterior left parietal lobe, measuring the 13 millimeters in length, compatible with acute infarct. There is bilateral white matter high T2 signal, compatible with underlying chronic microvascular ischemic changes. No abnormal extra-axial fluid collections are seen. No evidence of intracranial mass. No hydrocephalus. The orbits and globes are unremarkable in appearance. Paranasal sinuses and mastoids are aerated. IMPRESSION: Small area of acute infarction in the anterior left parietal lobe
--- NOTE | 2018-03-12 08:24 | Progress Note ---
Subjective Date of service: 03/12/18 Interval history: patient seen and assessed he is stable and MRI does show very small parietal lobe stroke on the left plan check vascular studies suspect this is from HTN Objective - Vital Sign Vital Signs - 12hr 03/11/18 03/12/18 03/12/18 22:49 00:02 05:16 Temperature 98.0 F 98.3 F Pulse Rate 89 73 79 Respiratory 18 18 Rate Blood Pressure 118/69 128/76 O2 Sat by Pulse 99 99 Oximetry 03/12/18 08:00 Temperature 98.2 F Pulse Rate 80 Respiratory 18 Rate Blood Pressure 133/79 O2 Sat by Pulse 96 Oximetry - Laboratory Findings CBC and BMP: 03/09/18 18:24 03/09/18 18:24 Abnormal Lab Findings: Abnormal Labs 03/09/18 03/09/18 03/09/18 18:03 18:24 18:24 Hgb 9.0 L Hct 28.6 L MCV 61 L MCH 19 L RDW 24.1 H Seg Neuts % (Manual) 30.0 L Lymphocytes % (Manual) 49.0 H Monocytes % (Manual) 9.0 H Eosinophils % (Manual) 9.0 H Basophils % (Manual) 3.0 H Seg Neutrophils # Man 1.6 L Eosinophils # (Manual) 0.5 H Basophils # (Manual) 0.2 H Chloride 108.7 H BUN 8 L POC Glucose 116 H Total Creatine Kinase HDL Cholesterol 03/10/18 03/10/18 03/10/18 00:40 03:57 04:59 Hgb Hct MCV MCH RDW Seg Neuts % (Manual) Lymphocytes % (Manual) Monocytes % (Manual) Eosinophils % (Manual) Basophils % (Manual) Seg Neutrophils # Man Eosinophils # (Manual) Basophils # (Manual) Chloride BUN POC Glucose Total Creatine Kinase 187 H 171 H HDL Cholesterol 39 L 03/11/18 16:13 Hgb Hct MCV MCH RDW Seg Neuts % (Manual) Lymphocytes % (Manual) Monocytes % (Manual) Eosinophils % (Manual) Basophils % (Manual) Seg Neutrophils # Man Eosinophils # (Manual) Basophils # (Manual) Chloride BUN POC Glucose 116 H Total Creatine Kinase HDL Cholesterol
--- NOTE | 2018-03-12 11:31 | Discharge Summary ---
Providers - Providers Date of Admission: 03/09/18 19:16 Attending physician: DAINA DELGADO MD 03/09/18 22:59 Occupational Therapy Evaluate and Treat [CONS] Routine Comment: Reason For Exam: Neuro deficits Physical Therapy Evaluation and Treat [CONS] Routine Comment: Reason For Exam: Neuro deficits 03/09/18 23:02 Speech Therapy Evaluation and Treat [CONS] Routine Reason For Exam: slurred speech 03/11/18 16:49 Consult to Physician [CONS] Routine Comment: Consulting Provider: SERGEI CARBALLO Physician Instructions: n Reason For Exam: MRI ABNORMAL Primary care physician: ANTENNA DESIGN ENGINEER Hospitalization Reason for admission: CVA Condition: Stable Hospital course: Pt is an 82-year-old male with PMHx of hypertension who presents to the ER with c/o slurred speech and difficulty speaking x1 day. Patient resides in an assisted living facility, he states that his slurred speech started in the morning and didn't get better. Pt's daughter states that she noticed the symptoms in the afternoon, pt's speech was slurred and he was having difficulty to speak, the daughter ask to bring him to the hospital to be evaluated for possible stroke symptoms. Pt was seen in room, alert and orientated, he is able to provide medical history, memory intact, he admits to slurred speech, but states that he has no trouble finding words, he denies LOC, denies headache, denies dizziness, denies any recent illness. Pt denies history of previous stroke, he denies numbness or weakness. In the ER his CT scan was negative, he was admitted for TIA to r/o CVA. 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 patient did not demonstrate any dysphagia and no further PT needs. We discussed management of HTN with the patient AND HE verbalized understanding. CVA Hypertensive urgency Chronic Anemia Dysarthria facial droop Disposition: [id number] HOME UNDER HOME [facility] Time spent for discharge: 35 MINS Core Measure Documentation - Palliative Care Palliative Care/ Comfort Measures: Not Applicable - Core Measures Any of the following diagnoses?: stroke - VTE Discharge Requirements Deep Vein Thrombosis/Pulmonary Embolism Present on Admission: No - Stroke Discharge Requirements Statin for LDL = or >70 mg/dl on DC: Yes Anticoag for atrial fib/atrial flutter: Not Applicable Antithrombotic for ischemic stroke: Yes Exam - Physical Exam Narrative exam: General appearance: Present: no acute distress, well-nourished - EENT Eyes: Present: PERRL, EOM intact - Neck Neck: Present: supple, normal ROM - Respiratory Respiratory effort: normal - Cardiovascular Rhythm: regular Heart Sounds: Present: S1 & S2. Absent: systolic murmur - Extremities Extremities: no ischemia, pulses intact, pulses symmetrical, No edema, normal temperature, normal color, Full ROM Peripheral Pulses: within normal limits - Integumentary Integumentary: Present: clear, warm, dry - Psychiatric Psychiatric: appropriate mood/affect, intact judgment & insight, cooperative - Neurologic Neurologic: CNII-XII intact, focal deficits, moves all extremities - Constitutional Vitals: Temp Pulse Resp BP Pulse Ox 98.2 F 80 18 133/79 96 03/12/18 08:00 03/12/18 08:00 03/12/18 08:00 03/12/18 08:00 03/12/18 08:00 Plan Activity: advance as tolerated, fall precautions Diet: low fat, low salt Special Instructions: record daily weights, record daily BP diary, physical therapy Follow up with: PRIMARY CARE, [Primary Care Provider] - 3-5 Days SERGEI CARBALLO MD [Staff Physician] - 7 Days Prescriptions: AtorvaSTATin [Lipitor] 40 mg PO QHS #30 tablet Aspirin [Aspirin TAB] 325 mg PO QDAY #30 tablet Losartan/Hydrochlorothiazide [Hyzaar 50-12.5 TAB] 50 mg PO DAILY #30 tablet
[2018-03-12] MEDS: ASPIRIN PO SCH (11:32)
[2018-03-12 11:56] VITALS: BP 146/94
--- NOTE | 2018-03-12 23:41 | Consultation ---
HISTORY OF PRESENT ILLNESS: This is an 82-year-old black male that presents to [facility] with onset of being noticed by his daughter is having a twisted face on the right side. He was initially evaluated in the Emergency Room. He had been living in an assisted living facility, had been taking medications for hypertension, urinary tract infection, and on presentation was evaluated and elevated blood pressure of 162/96. He was noted to have hypertension, right-sided facial weakness. Initially felt to have possibility of having a stroke. Review of his initial CAT scan showed enlargement of the sulcal pattern, some degenerative changes, rate of the pérez-white matter was unremarkable for stated age of 82. No evidence of any hemorrhage or any other acute changes are noted on the CT. Scattered white matter changes appropriate for age are noted. There is a slight suggestion of perhaps an area of low density in the left parietal lobe seen on the CT, subsequent MRI did confirm the patient having a stroke in the area of the left parietal lobe which was small and measured approximately 13 mm in the anterior parietal lobe, which is suggestive of an acute stroke. PHYSICAL EXAMINATION: NEUROLOGIC: Examination shows the patient to be fully alert, appropriate. He is standing up, walking. He has a central facial weakness on the right side. He has equal room designer, full ocular movements. Gait is normal. Visual b[place] are full. Cranial nerves outside of the central facial weakness are intact. No tremors or asterixis. No ataxia is present. 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 Would recommend medical therapy, review of the echocardiogram, carotid artery ultrasound are appropriate. I also would review over his lipid profile. The patient's neurological status is stable. [facility]# [id number] BEULAH/NTS
== END 2018-03-12 15:30 | disposition home health service (06) | DRG 66 ==
LOC: ED 18:00 → 4A 19:16
PROVIDERS: ADMIT Internal Medicine; ATTEND Internal Medicine
DX: I63.9 Cerebral infarction, unspecified (principal); I16.0 Hypertensive urgency; I10 Essential (primary) hypertension; D50.0 Iron deficiency anemia secondary to blood loss (chronic); R47.1 Dysarthria and anarthria; R29.810 Facial weakness; N40.0 Benign prostatic hyperplasia without lower urinary tract symptoms; R29.702 NIHSS score 2; R47.81 Slurred speech; Z79.899 Other long term (current) drug therapy; Z87.440 Personal history of urinary (tract) infections
CPT/HCPCS: 36415; 70450; 70551; 80048; 80061; 82550; 82553; 82962; 84484; 85007; 85025; 85610; 85670; 85730; 93005; 93010; 93306; 93880; A9270-GY; G8978-GP; G8980-GP; G8999-GN; G9186-GN

== ENCOUNTER 2018-09-26 09:35 | Emergency (ER) | payer MEDICARE ==
--- NOTE | 2018-09-26 10:36 | Cat Scan Report ---
CT HEAD WITHOUT CONTRAST: HISTORY: Off balance gait. TECHNIQUE: Sequential CT images without contrast. FINDINGS: Images obtained show bilateral prominence of the sulci and ventricles. There are no abnormal intra- or extra-axial blood or fluid collections. There are no focal masses or evidence of mass effect. The pérez white matter differentiation appears within normal limits. Regions of periventricular decreased attenuation are consistent with microangiopathic ischemic disease. The posterior fossa structures including the fourth ventricle, cerebellum, and brainstem appear normal. IMPRESSION: Evidence of atrophy and microangiopathic ischemic disease. No acute intracranial process noted. No significant change since 03/09/18.
--- NOTE | 2018-09-26 10:45 | Emergency Department Report ---
ED Dizziness HPI - General Chief Complaint: Dizziness Stated Complaint: DIZZINESS Time Seen by Provider: 09/26/18 10:04 Source: patient Mode of arrival: Ambulatory Limitations: No Limitations - History of Present Illness Initial Comments: Patient is a 83-year-old [place] male with a past medical history of CVA with no residual deficit as well as hypertension who is presenting with dizziness for approximately 3 days. Patient's family member states that he appears to be staggering when he is walking. Patient denies any headache, short of breath, ch est pain, nausea vomiting or diarrhea, or focal weakness. Patient states he feels as though his strength in his arms or legs is appropriate. He's had no slurred speech. He denies headache. Patient states that he does feel a spinning sensation while he is walking. He does not feel as though he is favoring going to the left versus the right. - Related Data Home Medications Medication Instructions Recorded Confirmed Last Taken Acetaminophen [Acetaminophen TAB] 500 mg PO BID 05/02/14 03/12/18 05/02/14 Docusate Sodium [Colace CAP] 100 mg PO BID 05/02/14 03/12/18 05/02/14 Previous Rx's Medication Instructions Recorded Last Taken Type Aspirin [Aspirin TAB] 325 mg PO QDAY #30 tablet 03/12/18 Unknown Rx AtorvaSTATin [Lipitor] 40 mg PO QHS #30 tablet 03/12/18 Unknown Rx Losartan/Hydrochlorothiazide 50 mg PO DAILY #30 tablet 03/12/18 Unknown Rx [Hyzaar 50-12.5 TAB] Ciprofloxacin HCl [Cipro] 500 mg PO BID #14 tablet 09/26/18 Unknown Rx Meclizine [Antivert] 25 mg PO TID PRN #10 tablet 09/26/18 Unknown Rx Allergies Allergy/AdvReac Type Severity Reaction Status Date / Time No Known Allergies Allergy Unverified 04/07/13 09:22 ED Review of Systems ROS: Stated complaint: DIZZINESS Other details as noted in HPI Comment: All other systems reviewed and negative ED Past Medical Hx - Past Medical History Previous Medical History?: Yes Hx Hypertension: Yes Hx CVA: Yes Additional medical history: enlarged prostate - Surgical History Past Surgical History?: Yes Additional Surgical History: "prostate surgery" & "cataract surgery" - Social History Smoking Status: Never Smoker Substance Use Type: None - Medications Home Medications: Home Medications Medication Instructions Recorded Confirmed Last Taken Type Acetaminophen [Acetaminophen TAB] 500 mg PO BID 05/02/14 03/12/18 05/02/14 History Docusate Sodium [Colace CAP] 100 mg PO BID 05/02/14 03/12/18 05/02/14 History Aspirin [Aspirin TAB] 325 mg PO QDAY #30 tablet 03/12/18 Unknown Rx AtorvaSTATin [Lipitor] 40 mg PO QHS #30 tablet 03/12/18 Unknown Rx Losartan/Hydrochlorothiazide 50 mg PO DAILY #30 tablet 03/12/18 Unknown Rx [Hyzaar 50-12.5 TAB] Ciprofloxacin HCl [Cipro] 500 mg PO BID #14 tablet 09/26/18 Unknown Rx Meclizine [Antivert] 25 mg PO TID PRN #10 tablet 09/26/18 Unknown Rx ED Physical Exam - General Limitations: No Limitations General appearance: alert, in no apparent distress - Head Head exam: Present: atraumatic, normocephalic - Eye Eye exam: Present: normal appearance. Absent: PERRL, EOMI - ENT ENT exam: Present: normal exam, normal orophraynx, mucous membranes moist - Neck Neck exam: Present: normal inspection - Respiratory Respiratory exam: Present: normal lung sounds bilaterally. Absent: respiratory distress, wheezes, rales, rhonchi - Cardiovascular Cardiovascular Exam: Present: regular rate, normal rhythm. Absent: systolic murmur, diastolic murmur, rubs, gallop - GI/Abdominal GI/Abdominal exam: Present: soft, guarding, normal bowel sounds. Absent: distended, tenderness, rebound - Rectal Rectal exam: Present: deferred - Extremities Exam Extremities exam: Present: normal inspection - Back Exam Back exam: Present: normal inspection - Neurological Exam Neurological exam: Present: alert, oriented X3 - Psychiatric Psychiatric exam: Present: normal affect, normal mood - Skin Skin exam: Present: warm, dry, intact, normal color. Absent: rash ED Course Vital Signs 09/26/18 09/26/18 09/26/18 09:39 10:08 10:19 Temperature 98.4 F Pulse Rate 89 79 Respiratory 18 13 18 Rate Blood Pressure 150/96 O2 Sat by Pulse 98 100 100 Oximetry 09/26/18 09/26/18 09/26/18 10:26 10:30 10:45 Temperature Pulse Rate 84 82 80 Respiratory 16 17 14 Rate Blood Pressure 121/78 121/82 127/80 O2 Sat by Pulse 95 96 99 Oximetry 09/26/18 09/26/18 09/26/18 11:00 11:16 11:30 Temperature Pulse Rate 77 83 81 Respiratory 18 13 15 Rate Blood Pressure 137/78 134/112 140/90 O2 Sat by Pulse 97 97 Oximetry 09/26/18 09/26/18 09/26/18 11:45 12:00 12:15 Temperature Pulse Rate 73 71 74 Respiratory 10 L 12 12 Rate Blood Pressure 137/85 137/85 137/85 O2 Sat by Pulse 98 Oximetry 09/26/18 09/26/18 09/26/18 12:38 12:46 13:00 Temperature Pulse Rate 75 71 77 Respiratory 15 15 16 Rate Blood Pressure 137/85 143/87 147/92 O2 Sat by Pulse 87 97 98 Oximetry 09/26/18 09/26/18 09/26/18 13:15 13:30 13:45 Temperature Pulse Rate 61 74 74 Respiratory 14 10 L 8 L Rate Blood Pressure 155/78 155/78 148/91 O2 Sat by Pulse 97 95 97 Oximetry 09/26/18 14:00 Temperature Pulse Rate 77 Respiratory 10 L Rate Blood Pressure 148/91 O2 Sat by Pulse 97 Oximetry ED Medical Decision Making - Lab Data Result diagrams: 09/26/18 10:38 09/26/18 10:38 Lab Results 09/26/18 09/26/18 09/26/18 Range/Units 10:38 10:38 Unknown WBC 5.1 (4.5-11.0) K/mm3 RBC 5.50 H (3.65-5.03) M/mm3 Hgb 11.8 (11.8-15.2) gm/dl Hct 37.8 (35.5-45.6) % MCV 69 L (84-94) fl MCH 22 L (28-32) pg MCHC 31 L (32-34) % RDW 18.7 H (13.2-15.2) % Plt Count 179 (140-440) K/mm3 Sodium 143 (137-145) mmol/L Potassium 3.7 (3.6-5.0) mmol/L Chloride 106.3 (98-107) mmol/L Carbon Dioxide 27 (22-30) mmol/L Anion Gap 13 mmol/L BUN 18 (9-20) mg/dL Creatinine 1.1 (0.8-1.5) mg/dL Estimated GFR > 60 ml/min BUN/Creatinine Ratio 16 % Glucose 107 H (75-100) mg/dL Calcium 9.0 (8.4-10.2) mg/dL Urine Color Yellow (Yellow) Urine Turbidity Clear (Clear) Urine pH 6.0 (5.0-7.0) Ur Specific [place] 1.039 H (1.003-1.030) Urine Protein <15 mg/dl (Negative) mg/dL Urine Glucose (UA) Neg (Negative) mg/dL Urine Ketones Neg (Negative) mg/dL Urine Blood Neg (Negative) Urine Nitrite Neg (Negative) Urine Bilirubin Neg (Negative) Urine Urobilinogen < 2.0 (<2.0) mg/dL Ur Leukocyte Esterase Mod (Negative) Urine WBC (Auto) 26.0 H (0.0-6.0) /HPF Urine RBC (Auto) 4.0 (0.0-6.0) /HPF U Epithel Cells (Auto) < 1.0 (0-13.0) /HPF Urine Mucus Few /HPF - Radiology Data [facility] [address] [place] [address] Cat Scan Report Signed Patient: AMY BOOTH MR#: [id number] : 1935 ct:[id number] Age/Sex: 83 / M ADM Date: 09/26/18 Loc: ED Attending Dr: Ordering Physician: VAIBHAV PALACIOS MD Date of Service: 09/26/18 Procedure(s): CT head/brain wo con Accession Number(s): [id number] cc: VAIBHAV PALACIOS MD CT HEAD WITHOUT CONTRAST: HISTORY: Off balance gait. TECHNIQUE: Sequential CT images without contrast. FINDINGS: Images obtained show bilateral prominence of the sulci and ventricles. There are no abnormal intra- or extra-axial blood or fluid collections. There are no focal masses or evidence of mass effect. The pérez white matter differentiation appears within normal limits. Regions of periventricular decreased attenuation are consistent with microangiopathic ischemic disease. The posterior fossa structures including the fourth ventricle, cerebellum, and brainstem appear normal. IMPRESSION: Evidence of atrophy and microangiopathic ischemic disease. No acute intracranial process noted. No significant change since 03/09/18. Transcribed By: TTR Dictated By: MARTA PARKS JR, MD Electronically Authenticated By: MARTA PARKS JR, MD Signed Date/Time: 09/26/18 103 DD/ 103 TD/TT: 09/26/18 1032 [facility] [address] [place] [address] Cat Scan Report Signed Patient: AMY BOOTH MR#: [id number] : 1935 Acct:[id number] Age/Sex: 83 / M ADM Date: 09/26/18 Loc: ED Attending Dr: Ordering Physician: VAIBHAV PALACIOS MD Date of Service: 09/26/18 Procedure(s): CT angio head Accession Number(s): [id number] cc: VAIBHAV PALACIOS MD PROCEDURE: CT ANGIO HEAD, CT ANGIO NECK TECHNIQUE: Computerized tomographic angiography of the head and neck was performed after the IV injection of iodinated nonionic contrast including image processing. The image data was postprocessed using 2- dimensional multiplanar reformatted (MPR) and 3-dimensional (MIP and/or volume rendered) techniques. Coronal and sagittal reconstructed imaging provided.. The image data was postprocessed using 2-dimensional multiplanar reformatted (MPR) and 3-dimensional (MIP and/or volume rendered) techniques. Coronal and sagittal reconstructed imaging provided. CT DOSE LENGTH PRODUCT: 1803.77 mGy-cm. HISTORY: unsteady gait COMPARISONS: CT head September 26, 2018. FINDINGS: HEAD: Intracranial carotids: Mild disease. Patent with contrast. Anterior Cerebral: Unremarkable. Middle Cerebral: Unremarkable. Posterior Cerebral: Unremarkable. Basilar: Unremarkable. Intracranial Vertebral Arteries: Unremarkable. There is no aneurysm, dissection, vascular malformation, or significant vascular stenosis. There is no evidence for vasculitis. NECK: Note: Assessment of carotid artery stenosis is based on measurement of the distal internal carotid artery diameter as the denominator for stenosis calculations and the [place] Symptomatic Carotid Endarterectomy Trial (NASCET) stenosis criteria. RIGHT CAROTID: Origin: Unremarkable. Common: Unremarkable. Bifurcation: Unremarkable. Internal: Unremarkable. External: Unremarkable. There is no aneurysm, dissection, vascular malformation, or significant vascular stenosis. There is no evidence for vasculitis. LEFT CAROTID: Origin: Unremarkable. Common: Unremarkable. Bifurcation: Unremarkable. Internal: Unremarkable. External: Unremarkable. There is no aneurysm, dissection, vascular malformation, or significant vascular stenosis. There is no evidence for vasculitis. EXTRACRANIAL VERTEBRALS: Unremarkable. OTHER: Partially imaged thoracic aorta does not demonstrate any aneurysm or dissection. Major branch arteries are are patent. Mild aortic atherosclerotic disease. IMPRESSION: * Unremarkable CTA of the head and neck. This document is electronically signed by Brent Woodard MD., September 26 2018 01:34:01 PM ET Transcribed By: TYM Dictated By: BRENT WOODARD MD Electronically Authenticated By: BRENT WOODARD MD Signed Date/Time: 09/26/18 1336 DD/ 11 TD/TT: 09/26/18 1312 - Medical Decision Making I was able to walk with the patient full [place] around the emergency department. Patient stated he felt the most part fine he did have to hold onto the wall just very briefly to steady himself at one point however he did not stop walking. The patient exhibited good strength. Patient's most or walking is completely straight line. CT of the head was negative for any acute bleed or ischemic changes. Patient had a CTA of the head and neck which also was unremarkable. Patient's likely with some vertigo-type symptoms but not from central origin. Patient does have evidence of a UTI on his laboratory studies this may be a concerning factor. Patient started on Cipro. In talking with the patient regarding this year he st ates he has no dysuria or problems having bowel movements have he has had some urinary frequency over the last several days. Critical care attestation.: If time is entered above; I have spent that time in minutes in the direct care of this critically ill patient, excluding procedure time. ED Disposition Clinical Impression: Vertiginous syndrome, UTI (urinary tract infection) Disposition: DC-01 TO HOME OR SELFCARE Is pt being admited?: No Does the pt Need Aspirin: No Condition: Stable Instructions: Vertigo (ED), Urinary Tract Infection in Men (ED) Referrals: SERGEI CARBALLO MD [Staff Physician] - 3-5 Days MAEGAN MERAZ [Other] - 3-5 Days Time of Disposition: 14:24 - Level of Consciousness 1a. Level of Consciousness: alert/keenly responsive - LOC Questions 1b. LOC Questions: answers both correctly - LOC Command 1c. LOC Commands: performs tasks correctly - Best Gaze 2. Best Gaze: normal - Visual 3. Visual: no visual loss - Facial Palsy 4. Facial Palsy: normal symmetrical movement - Motor Arm 5a. Motor Arm Left: no drift 5b. Motor Arm Right: no drift - Motor Leg 6a. Motor Leg Left: no drift 6b. Motor Leg Right: no drift - Limb Ataxia 7. Limb Ataxia: absent - Sensory 8. Sensory: normal - Best Language 9. Best Language: no aphasia - Dysarthria 10. Dysarthria: normal - Extinction and Inattention 11. Extinction/Inattention: no abnormality - Scoring Total Score: 0 Stroke Severity: No Stroke Symptoms
[2018-09-26 10:50] LABS: Hematocrit 37.8 % (35.5-45.6); Hemoglobin 11.8 gm/dl (11.8-15.2); Mean Corpuscular HGB Conc 31 % (32-34); Platelet Count 179 K/mm3 (140-440); Red Cell Distribution Width 18.7 % (13.2-15.2)
[2018-09-26 10:59] LABS: Mean Corpuscular Volume 69 fl (84-94)
[2018-09-26 11:11] LABS: BUN/Creatinine Ratio 16; Blood Urea Nitrogen 18 mg/dL (9-20); Hemolysis Index 13
[2018-09-26] MEDS ORDERED: ASPIRIN PO ONE (11:55)
[2018-09-26] MEDS ORDERED: ANTIVERT PO ONE (12:10)
--- NOTE | 2018-09-26 13:36 | Cat Scan Report ---
PROCEDURE: CT ANGIO HEAD, CT ANGIO NECK TECHNIQUE: Computerized tomographic angiography of the head and neck was performed after the IV inje ction of iodinated nonionic contrast including image processing. The image data was postprocessed usi ng 2-dimensional multiplanar reformatted (MPR) and 3-dimensional (MIP and/or volume rendered) techn[employer] ues. Coronal and sagittal reconstructed imaging provided.. The image data was postprocessed using 2-d imensional multiplanar reformatted (MPR) and 3-dimensional (MIP and/or volume rendered) techniques. C oronal and sagittal reconstructed imaging provided. CT DOSE LENGTH PRODUCT: 1803.77 mGy-cm. HISTORY: unsteady gait COMPARISONS: CT head September 26, 2018. FINDINGS: HEAD: Intracranial carotids: Mild disease. Patent with contrast. Anterior Cerebral: Unremarkable. Middle Cerebral: Unremarkable. Posterior Cerebral: Unremarkable. Basilar: Unremarkable. Intracranial Vertebral Arteries: Unremarkable. There is no aneurysm, dissection, vascular malformation, or significant vascular stenosis. There is n o evidence for vasculitis. NECK: Note: Assessment of carotid artery stenosis is based on measurement of the distal internal carotid a rtery diameter as the denominator for stenosis calculations and the [place] Symptomatic Car[place] d Endarterectomy Trial (NASCET) stenosis criteria. RIGHT CAROTID: Origin: Unremarkable. Common: Unremarkable. Bifurcation: Unremarkable. Internal: Unremarkable. External: Unremarkable. There is no aneurysm, dissection, vascular malformation, or significant vascular stenosis. There is n o evidence for vasculitis. LEFT CAROTID: Origin: Unremarkable. Common: Unremarkable. Bifurcation: Unremarkable. Internal: Unremarkable. External: Unremarkable. There is no aneurysm, dissection, vascular malformation, or significant vascular stenosis. There is n o evidence for vasculitis. EXTRACRANIAL VERTEBRALS: Unremarkable. OTHER: Partially imaged thoracic aorta does not demonstrate any aneurysm or dissection. Major branch arterie s are are patent. Mild aortic atherosclerotic disease. IMPRESSION: * Unremarkable CTA of the head and neck. This document is electronically signed by Brent Alvaerz MD., September 26 2018 01:34:01 PM ET
[2018-09-26 14:14] LABS: Bilirubin,Urine NEG (Negative); Blood,Urine NEG (Negative); Color,Urine Yellow (Yellow); Mucus,Urine FEW /HPF; Protein,Urine <15 mg/dL mg/dL (Negative); Urobilinogen,Urine < 2.0 mg/dL (<2.0)
[2018-09-26 15:07] VITALS: BP 140/90
[2018-09-26 15:49] LABS: Basophils % (Manual) 0 % (0.0-1.8); Total Cells Counted 100
[2018-09-26 15:50] LABS: Anisocytosis 1+; Hypochromasia 1+
[2018-09-26 15:52] LABS: Platelet Estimate Consistent w Auto
== END 2018-09-26 14:30 | disposition home or self-care (01) ==
LOC: ED 09:35
DX: N39.0 Urinary tract infection, site not specified (principal); H81.90 Unspecified disorder of vestibular function, unspecified ear; I10 Essential (primary) hypertension; Z79.899 Other long term (current) drug therapy; Z86.73 Personal history of transient ischemic attack (TIA), and cerebral infarction without residual deficits
CPT/HCPCS: 36415; 70450; 70496; 70498; 80048; 81001; 85007; 85025; 93005; 93010; 99284; Q9967

== ENCOUNTER 2020-03-24 10:27 | Inpatient (IN) | payer MEDICARE ==
[2020-03-24] MEDS ORDERED: SODIUM CHLORIDE 0.9% 500 ML 500 ML IV ONE ×2 (10:53→11:56)
[2020-03-24] MEDS ORDERED: PANTOPRAZOLE 40 MG INJ IV ONE ×2 (10:53→11:04)
[2020-03-24 11:38] LABS: Hematocrit 25.9 % (35.5-45.6); Hemoglobin 8.2 gm/dl (11.8-15.2); Mean Corpuscular HGB Conc 32 % (32-34); Red Blood Count 4.34 M/mm3 (3.65-5.03)
[2020-03-24 11:48] LABS: Mean Corpuscular Volume 60 fl (84-94); Red Cell Distribution Width 21.2 % (13.2-15.2)
[2020-03-24 11:49] LABS: INR 1.04 (0.87-1.13)
[2020-03-24] MEDS ORDERED: SODIUM CHLORIDE 0.9% 1000 ML 1,000 ML ONE (11:49)
[2020-03-24 11:50] LABS: Alanine Aminotransferase 6 units/L (7-56); Albumin 3.6 g/dL (3.9-5); BUN/Creatinine Ratio 29; Bilirubin,Direct < 0.2 mg/dL (0-0.2); Blood Urea Nitrogen 26 mg/dL (9-20); Calcium 8.9 mg/dL (8.4-10.2); Hemolysis Index 7
--- NOTE | 2020-03-24 11:50 | Emergency Department Report ---
ED GI Bleed HPI - General Chief complaint: GI Bleed Stated complaint: NAUSEA/POSS UPPER GI BLEED Time Seen by Provider: 03/24/20 10:53 Source: patient, EMS Mode of arrival: Stretcher Limitations: No Limitations - History of Present Illness Initial comments: This is an 84-year-old man who presents to the emergency department with limited ability to give a history. He can answer questions adequately. He is oriented and appropriate. However, he was transported via EMS for evaluation of apparent GI bleeding. He cannot tell me where the blood was coming from. He does not recall vomiting. He did have a syncopal episode and apparently he was found in a pool of blood. He denies any change in his bowel habits. He has not had any prior emesis. He is not complaining of nausea or any change in his bowel habits. He denies epistaxis. There was blood noted at bilateral nares. He does not report any difficulty swallowing or any odd sensation in the back of his throat. The patient denies being on anticoagulation. He denies a prior history of GI bleeding. Prior records indicate from 2018: Hospitalization Reason for admission: CVA Condition: Stable Hospital course: Pt is an 82-year-old male with PMHx of hypertension who presents to the ER with c/o slurred speech and difficulty speaking x1 day. Patient resides in an [facility] facility, he states that his slurred speech started in the morning and didn't get better. Pt's daughter states that she noticed the symptoms in the afternoon, pt's speech was slurred and he was having difficulty to speak, the daughter ask to bring him to the hospital to be evaluated for possible stroke symptoms. Pt was seen in room, alert and orientated, he is able to provide medical history, memory intact, he admits to slurred speech, but states that he has no trouble finding words, he denies LOC, denies headache, denies dizziness, denies any recent illness. Pt denies history of previous stroke, he denies numbness or weakness. In the ER his CT scan was negative, he was admitted for TIA to r/o CVA. 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 patient did not demonstrate any dysphagia and no further PT needs. We discussed management of HTN with the patient AND HE verbalized understanding. CVA Hypertensive urgency Chronic Anemia Dysarthria facial droop -: Sudden Quality: painless Consistency: now resolved Improves with: none Worsens with: none Context: other (Syncope) - Related Data Home Medications Medication Instructions Recorded Confirmed Last Taken Acetaminophen [Acetaminophen TAB] 500 mg PO BID 05/02/14 03/12/18 05/02/14 Docusate Sodium [Colace CAP] 100 mg PO BID 05/02/14 03/12/18 05/02/14 Previous Rx's Medication Instructions Recorded Last Taken Type Aspirin 325 mg PO QDAY #30 tablet 03/12/18 Unknown Rx AtorvaSTATin [Lipitor] 40 mg PO QHS #30 tablet 03/12/18 Unknown Rx Losartan/Hydrochlorothiazide 50 mg PO DAILY #30 tablet 03/12/18 Unknown Rx [Hyzaar 50-12.5 TAB] Ciprofloxacin HCl [Cipro] 500 mg PO BID #14 tablet 09/26/18 Unknown Rx Meclizine [Antivert] 25 mg PO TID PRN #10 tablet 09/26/18 Unknown Rx Allergies Allergy/AdvReac Type Severity Reaction Status Date / Time No Known Allergies Allergy Unverified 04/07/13 09:22 ED Review of Systems ROS: Stated complaint: NAUSEA/POSS UPPER GI BLEED Other details as noted in HPI Constitutional: denies: chills, fever Eyes: denies: eye pain, eye discharge, vision change ENT: denies: ear pain, throat pain Respiratory: denies: cough, shortness of breath Cardiovascular: denies: chest pain, palpitations Endocrine: no symptoms reported Gastrointestinal: as per HPI, hematemesis (Very likely). denies: abdominal pain, nausea, diarrhea Genitourinary: denies: urgency, dysuria Musculoskeletal: denies: back pain, joint swelling, arthralgia Skin: denies: rash, lesions Neurological: denies: headache, weakness, paresthesias Psychiatric: denies: anxiety, depression Hematological/Lymphatic: denies: easy bleeding, easy bruising ED Past Medical Hx - Past Medical History Hx Hypertension: Yes Hx CVA: Yes Additional medical history: enlarged prostate - Surgical History Additional Surgical History: "prostate surgery" & "cataract surgery" - Social History Smoking Status: Never Smoker Substance Use Type: None - Medications Home Medications: Home Medications Medication Instructions Recorded Confirmed Last Taken Type Acetaminophen [Acetaminophen TAB] 500 mg PO BID 05/02/14 03/12/18 05/02/14 History Docusate Sodium [Colace CAP] 100 mg PO BID 05/02/14 03/12/18 05/02/14 History Aspirin 325 mg PO QDAY #30 tablet 03/12/18 Unknown Rx AtorvaSTATin [Lipitor] 40 mg PO QHS #30 tablet 03/12/18 Unknown Rx Losartan/Hydrochlorothiazide 50 mg PO DAILY #30 tablet 03/12/18 Unknown Rx [Hyzaar 50-12.5 TAB] Ciprofloxacin HCl [Cipro] 500 mg PO BID #14 tablet 09/26/18 Unknown Rx Meclizine [Antivert] 25 mg PO TID PRN #10 tablet 09/26/18 Unknown Rx ED Physical Exam - General Limitations: Physical Limitation General appearance: alert, in no apparent distress - Head Head exam: Present: atraumatic, normocephalic - Eye Eye exam: Present: normal appearance. Absent: scleral icterus - ENT ENT exam: Present: mucous membranes moist - Neck Neck exam: Present: normal inspection. Absent: tenderness, meningismus - Respiratory Respiratory exam: Present: normal lung sounds bilaterally. Absent: respiratory distress - Cardiovascular Cardiovascular Exam: Present: regular rate, normal rhythm. Absent: systolic murmur, diastolic murmur, rubs, gallop - GI/Abdominal GI/Abdominal exam: Present: soft, normal bowel sounds. Absent: distended, tenderness, guarding, rebound, rigid - Rectal Rectal exam: Present: heme (-) stool, other (Brown stool, no gross mass) - Extremities Exam Extremities exam: Present: normal inspection - Back Exam Back exam: Present: normal inspection - Neurological Exam Neurological exam: Present: alert, oriented X3, other (No gross acute focal deficit). Absent: motor sensory deficit - Psychiatric Psychiatric exam: Present: normal affect, normal mood - Skin Skin exam: Present: warm, dry, intact, normal color. Absent: rash ED Course Vital Signs 03/24/20 03/24/20 03/24/20 10:44 11:15 11:45 Temperature 97.5 F L Pulse Rate 96 H 92 H Respiratory 19 19 Rate Blood Pressure 100/71 88/66 81/46 O2 Sat by Pulse 96 99 98 Oximetry 03/24/20 03/24/20 03/24/20 12:15 12:30 13:16 Temperature Pulse Rate 86 87 Respiratory 11 L 12 Rate Blood Pressure 116/80 138/82 124/82 O2 Sat by Pulse 99 98 100 Oximetry 03/24/20 03/24/20 03/24/20 13:30 13:45 14:00 Temperature Pulse Rate 91 H 95 H 90 Respiratory 17 14 15 Rate Blood Pressure 94/61 102/70 121/88 O2 Sat by Pulse 100 100 97 Oximetry - Reevaluation(s) Reevaluation #1: Consult was called to GI. The patient was scoped and found to have an oozing gastric mass. It was not coagulated. Consult the surgery was recommended. Account Underwriter called the surgeon. I have placed the consult to Dr. Yanez as well. A transfusion of blood has been ordered and should be given by now 1 unit. 03/24/20 14:12 Reevaluation #2: Advise Dr. Jasmine of the results of the endoscopy and consultations placed. The patient will be admitted to the IMCU. 03/24/20 14:26 ED Medical Decision Making - Lab Data Result diagrams: 03/24/20 11:08 03/24/20 11:08 Laboratory Results - last 24 hr 03/24/20 03/24/20 03/24/20 11:08 11:08 11:08 WBC 9.8 RBC 4.34 Hgb 8.2 L Hct 25.9 L MCV 60 L MCH 19 L MCHC 32 RDW 21.2 H Lymph # (Auto) Sheet Metal Lay Out Worker PT 13.8 INR 1.04 Blood Type A POSITIVE Laboratory Results - last 24 hr 03/24/20 03/24/20 03/24/20 11:08 11:08 11:08 WBC 9.8 RBC 4.34 Hgb 8.2 L Hct 25.9 L MCV 60 L MCH 19 L MCHC 32 RDW 21.2 H Plt Count 235 Lymph # (Auto) Sheet Metal Lay Out Worker Add Manual Diff Complete Total Counted 100 Seg Neuts % (Manual) 63.0 Band Neutrophils % 0 Lymphocytes % (Manual) 30.0 Reactive Lymphs % (Man) 0 Monocytes % (Manual) 5.0 Eosinophils % (Manual) 2.0 Basophils % (Manual) 0 Metamyelocytes % 0 Myelocytes % 0 Promyelocytes % 0 Blast Cells % 0 Nucleated RBC % Not Reportable Seg Neutrophils # Man 6.2 Band Neutrophils # 0.0 Lymphocytes # (Manual) 2.9 Abs React Lymphs (Man) 0.0 Monocytes # (Manual) 0.5 Eosinophils # (Manual) 0.2 Basophils # (Manual) 0.0 Metamyelocytes # 0.0 Myelocytes # 0.0 Promyelocytes # 0.0 Blast Cells # 0.0 WBC Morphology Not Reportable Hypersegmented Neuts Not Reportable Hyposegmented Neuts Not Reportable Hypogranular Neuts Not Reportable Smudge Cells Not Reportable Toxic Granulation Not Reportable Toxic Vacuolation Not Reportable Dohle Bodies Not Reportable Pelger-Huet Anomaly Not Reportable Jackie Rods Not Reportable Platelet Estimate Consistent w auto Clumped Platelets Not Reportable Plt Clumps, EDTA Not Reportable Large Platelets Not Reportable Giant Platelets Not Reportable Platelet Satelliting Not Reportable Plt Morphology Comment Not Reportable RBC Morphology Not Reportable Dimorphic RBCs Not Reportable Polychromasia Rare Hypochromasia 1+ Poikilocytosis Not Reportable Anisocytosis 2+ Microcytosis 2+ Macrocytosis Not Reportable Spherocytes Not Reportable Pappenheimer Bodies Not Reportable Sickle Cells Not Reportable Target Cells Rare Tear Drop Cells Not Reportable Ovalocytes Not Reportable Helmet Cells Not Reportable [place] Bodies Not Reportable Diana Rings Not Reportable [place] Cells Not Reportable Bite Cells Not Reportable Crenated Cell Not Reportable Elliptocytes Not Reportable Acanthocytes (Spur) Not Reportable Rouleaux Not Reportable Hemoglobin C Crystals Not Reportable Schistocytes Few Malaria parasites Not Reportable Kareem Bodies Not Reportable Hem Pathologist Commnt No PT 13.8 INR 1.04 APTT 20.0 L Sodium 144 Potassium 3.8 Chloride 109.7 H Carbon Dioxide 21 L Anion Gap 17 BUN 26 H Creatinine 0.9 Estimated GFR > 60 BUN/Creatinine Ratio 29 Glucose 146 H Calcium 8.9 Magnesium 1.90 Total Bilirubin 0.20 Direct Bilirubin < 0.2 AST 12 ALT 6 L Alkaline Phosphatase 62 Total Protein 6.0 L Albumin 3.6 L Albumin/Globulin Ratio 1.5 Blood Type Antibody Screen Crossmatch 03/24/20 11:08 WBC RBC Hgb Hct MCV MCH MCHC RDW Plt Count Lymph # (Auto) Add Manual Diff Total Counted Seg Neuts % (Manual) Band Neutrophils % Lymphocytes % (Manual) Reactive Lymphs % (Man) Monocytes % (Manual) Eosinophils % (Manual) Basophils % (Manual) Metamyelocytes % Myelocytes % Promyelocytes % Blast Cells % Nucleated RBC % Seg Neutrophils # Man Band Neutrophils # Lymphocytes # (Manual) Abs React Lymphs (Man) Monocytes # (Manual) Eosinophils # (Manual) Basophils # (Manual) Metamyelocytes # Myelocytes # Promyelocytes # Blast Cells # WBC Morphology Hypersegmented Neuts Hyposegmented Neuts Hypogranular Neuts Smudge Cells Toxic Granulation Toxic Vacuolation Dohle Bodies Pelger-Huet Anomaly Jackie Rods Platelet Estimate Clumped Platelets Plt Clumps, EDTA Large Platelets Giant Platelets Platelet Satelliting Plt Morphology Comment RBC Morphology Dimorphic RBCs Polychromasia Hypochromasia Poikilocytosis Anisocytosis Microcytosis Macrocytosis Spherocytes Pappenheimer Bodies Sickle Cells Target Cells Tear Drop Cells Ovalocytes Helmet Cells [place] Bodies Diana Rings Froylan Cells Bite Cells Crenated Cell Elliptocytes Acanthocytes (Spur) Rouleaux Hemoglobin C Crystals Schistocytes Malaria parasites Kareem Bodies Hem Pathologist Commnt PT INR APTT Sodium Potassium Chloride Carbon Dioxide Anion Gap BUN Creatinine Estimated GFR BUN/Creatinine Ratio Glucose Calcium Magnesium Total Bilirubin Direct Bilirubin AST ALT Alkaline Phosphatase Total Protein Albumin Albumin/Globulin Ratio Blood Type A POSITIVE Antibody Screen Negative Crossmatch See Detail Critical Care Time: Yes Critical care time in (mins) excluding proc time.: 60 Critical care attestation.: If time is entered above; I have spent that time in minutes in the direct care of this critically ill patient, excluding procedure time. ED Disposition Clinical Impression: Upper GI bleeding, Gastric carcinoma Disposition: OP ADMIT IP TO THIS HOSP Is pt being admited?: Yes Does the pt Need Aspirin: No Condition: Stable Referrals: ZAKIA KING [Other] - 3-5 Days Forms: Accompanied Note Time of Disposition: 14:27
[2020-03-24] MEDS ORDERED: METOCLOPRAMIDE 10 MG/2 ML INJ IV ONE (11:56)
--- NOTE | 2020-03-24 12:27 | Gastroenterology Consultation ---
History of Present Illness - Reason for Consult Consult date: 03/24/20 GI Bleed Requesting physician: SERGEI BRADLEY - History of Present Illness This pleasant 84-year-old gentleman who presents with GI bleed and loss of consciousness Patient reports being in usual state of health, she felt like he had to have a bowel movement went to the commode and next thing he knew he woke up on the floor in a pool of blood. EMS reports that patient was found with large volume of blood. Patient reports not knowing if the blood came from above or below. Of note he does have blood smeared on his edgar and chest. Patient reports no abdominal pain no history of GI bleeding nausea or vomiting. He does report loss of consciousness and feeling weak and fatigued. His blood pressure was low upon arrival in the emergency room, with fluid resuscitation blood pressure is starting to improve Patient reports never having had upper endoscopy or colonoscopy in the past He denies active NSAID use or anticoagulation Only known medical history is hypertension Obtained/updated/reviewed patient's current medications Past History Past Medical History: other (Hypertension) Past Surgical History: No surgical history Social history: no significant social history Family history: no significant family history Medications and Allergies Allergies Allergy/AdvReac Type Severity Reaction Status Date / Time No Known Allergies Allergy Unverified 04/07/13 09:22 Home Medications Medication Instructions Recorded Confirmed Last Taken Type Acetaminophen [Acetaminophen TAB] 500 mg PO BID 05/02/14 03/12/18 05/02/14 History Docusate Sodium [Colace CAP] 100 mg PO BID 05/02/14 03/12/18 05/02/14 History Aspirin 325 mg PO QDAY #30 tablet 03/12/18 Unknown Rx AtorvaSTATin [Lipitor] 40 mg PO QHS #30 tablet 03/12/18 Unknown Rx Losartan/Hydrochlorothiazide 50 mg PO DAILY #30 tablet 03/12/18 Unknown Rx [Hyzaar 50-12.5 TAB] Ciprofloxacin HCl [Cipro] 500 mg PO BID #14 tablet 09/26/18 Unknown Rx Meclizine [Antivert] 25 mg PO TID PRN #10 tablet 09/26/18 Unknown Rx Review of Systems - Review of Systems All systems: negative (10 Systems reviewed and negative except as mentioned above in the history of present illness) Exam - Constitutional Vital Signs: Temp Pulse Resp BP Pulse Ox 97.5 F L 92 H 19 116/80 99 03/24/20 10:44 03/24/20 11:15 03/24/20 11:15 03/24/20 12:15 03/24/20 12:15 General appearance: other (Patient with red blood smeared on his edgar and chest) - EENT Eyes: EOM intact - Neck Neck: supple - Respiratory Respiratory effort: normal - Cardiovascular Rhythm: regular - Gastrointestinal General gastrointestinal: Present: soft - Integumentary Integumentary: Present: dry - Neurologic Neurological: alert and oriented x3 - Psychiatric Psychiatric: appropriate mood/affect - Labs CBC & Chem 7: 03/24/20 11:08 03/24/20 11:08 Lab Results: Laboratory Results - last 24 hr 03/24/20 03/24/20 03/24/20 11:08 11:08 11:08 WBC 9.8 RBC 4.34 Hgb 8.2 L Hct 25.9 L MCV 60 L MCH 19 L MCHC 32 RDW 21.2 H Lymph # (Auto) Real Property Evaluator PT 13.8 INR 1.04 APTT 20.0 L Sodium 144 Potassium 3.8 Chloride 109.7 H Carbon Dioxide 21 L Anion Gap 17 BUN 26 H Creatinine 0.9 Estimated GFR > 60 BUN/Creatinine Ratio 29 Glucose 146 H Calcium 8.9 Magnesium 1.90 Total Bilirubin 0.20 Direct Bilirubin < 0.2 AST 12 ALT 6 L Alkaline Phosphatase 62 Total Protein 6.0 L Albumin 3.6 L Albumin/Globulin Ratio 1.5 Blood Type Antibody Screen Crossmatch 03/24/20 11:08 WBC RBC Hgb Hct MCV MCH MCHC RDW Lymph # (Auto) PT INR APTT Sodium Potassium Chloride Carbon Dioxide Anion Gap BUN Creatinine Estimated GFR BUN/Creatinine Ratio Glucose Calcium Magnesium Total Bilirubin Direct Bilirubin AST ALT Alkaline Phosphatase Total Protein Albumin Albumin/Globulin Ratio Blood Type A POSITIVE Antibody Screen Negative Crossmatch See Detail Assessment and Plan Presentation concerning for acute significant upper GI bleed given blood on face and chest, though this could also be lower GI bleed if when patient lost con sciousness the blood got smeared on him from his lying in his own blood and not from vomiting up blood (differential diagnosis includes peptic ulcer disease AVM Dieulafoy lesion colon polyp colon mass diverticular bleed etc.) Given hemodynamic instability and loss of consciousness we will plan on emergent endoscopy, patient is being fluid resuscitated typed and screened in the meantime with transfusion goal of 7 if his hemoglobin drops below 7 Continue PPI drip Reglan IV x1 to clear the stomach for anticipated EGD If EGD is negative we will have to evaluate for lower GI bleed - Patient Problems (1) GI bleed Current Visit: Yes Status: Acute (2) Loss of consciousness Current Visit: Yes Status: Acute (3) Anemia due to acute blood loss Current Visit: Yes Status: Acute
--- NOTE | 2020-03-24 12:48 | XRay Report ---
CHEST 1 VIEW 03/24/2020 11:20 AM INDICATION / CLINICAL INFORMATION: GI Bleed. COMPARISON: None available. FINDINGS: SUPPORT DEVICES: None. HEART / MEDIASTINUM: No significant abnormality. LUNGS / PLEURA: Reduced lung volumes with probable mild bibasilar atelectasis. The lungs are otherwis e clear. No significant pleural effusion. No pneumothorax. ADDITIONAL FINDINGS: There is mild thoracic spondylosis. No significant additional findings. IMPRESSION: 1. No acute abnormality of the chest. 2. Probable bibasilar atelectasis. Signer Name: Cullen Vela MD Signed: 03/24/2020 12:43 PM Workstation Name: [email or web address]
[2020-03-24 13:01] LABS: Basophils % (Manual) 0 % (0.0-1.8); Total Cells Counted 100
[2020-03-24 13:02] LABS: Anisocytosis 2+; Hypochromasia 1+; Platelet Estimate Consistent w Auto; Schistocytes Few; Target Cells Rare
[2020-03-24 13:06] LABS: Platelet Count 235 K/mm3 (140-440)
--- NOTE | 2020-03-24 13:07 | Anesthesia Day of Surgery ---
Anesthesia Day of Surgery - Day of Surgery Patient Examined: Yes Patient H&P Reviewed: Yes Patient is NPO: Yes
--- NOTE | 2020-03-24 13:08 | Anesthesia Consultation ---
Anesthesia Consult and Med Hx Date of service: 03/24/20 - Airway Anesthetic Teeth Evaluation: Good, Caps ROM Head & Neck: Adequate Mental/Hyoid Distance: Adequate Mallampati Class: Class II Intubation Access Assessment: Good - Pre-Operative Health Status ASA Pre-Surgery Classification: ASA3, Emergency Proposed Anesthetic Plan: MAC - Cardiovascular System Hx Hypertension: Yes - Central Nervous System CVA: Yes - Hematic Hx Anemia: Yes - Other Systems Hx Cancer: No
[2020-03-24] MEDS ORDERED: propofoL 200 MG/20 ML VIAL IV ONE (13:11)
--- NOTE | 2020-03-24 13:42 | Operative Report ---
Operative Report Operative Report: DOS: 03/24/2020 SURGEON: Cayden Pyle MD EGD with biopsy and tattoo REPORT PREOPERATIVE DIAGNOSIS and POSTOPERATIVE DIAGNOSIS: GI bleed ESTIMATED BLOOD LOSS: 20cc DESCRIPTION OF PROCEDURE: A high-resolution EGD scope was passed through the oropharynx, esophagus, stomach, and second portion of duodenum. The scope was carefully withdrawn. Retroflexion was performed in the stomach. At the end of the procedure, the scope was cleaned using normal technique. Vital signs monitored continuously throughout. SEDATION: Provided by Anesthesiology Services. COMPLICATIONS: None. FINDINGS: * Moderate amount of bright red and dark red blood in the entire examined duodenum limiting views however no lesions were visualized * Moderate amount of bright red and dark red blood and blood clots in the gastric body and fundus especially limiting views in the mid gastric fundus * Large ulcerated actively oozing lesion in the anterior wall of the gastric antrum partially pedunculated approximately 4 cm in diameter malignant appearing. Blood was actively oozing from this lesion. Multiple biopsies obtained using cold forceps for pathology. The base of the lesion was tattooed with 2 cc of spot ink * Just distal to the GE junction at approximately the 6:00 jacqueline with the scope in neutral position was a 1 cm slightly raised lesion concerning for possible adenomatous tissue such as seen with Gonsalez's with dysplasia. Multiple biopsies obtained using cold forceps * 5 mm hiatal hernia * GE junction located at 43 cm from incisors * Remainder of exam was unremarkable RECOMMENDATIONS: * Follow-up biopsy results * Continue PPI drip and add on Carafate 1 g p.o. 4 times daily * Trend hemoglobin every 8 hours * Consult to surgery, I spoke directly with surgeon Dr Sullivan, regarding the case, as the lesion cannot be treated endoscopically * Transfuse PRB PRN for goal hgb 7 * Maintain NPO status
[2020-03-24] MEDS ORDERED: PANTOPRAZOLE 80 MG in SODIUM CHLORIDE 0.9% 100 ML IV SCH (14:00)
--- NOTE | 2020-03-24 14:08 | Post Anesthesia Evaluation ---
- Post Anesthesia Evaluation Patient Participated: Yes Airway Patent: Yes Stable Respiratory Function: Yes Nausea/Vomiting: No Temp > 96.8F: Yes Pain Manageable: Yes Adequeate Hydration: Yes Anesthesia Complications: No Block Receding Appropriately: Not Applicable Patient on Ventilator: No
[2020-03-24] MEDS ORDERED: SODIUM CHLORIDE 0.9% 50 ML ONE (14:54)
[2020-03-24] MEDS: PANTOPRAZOLE 80 MG in SODIUM CHLORIDE 0.9% 100 ML IV SCH (15:12)
--- NOTE | 2020-03-24 16:20 | Consultation ---
History of Present Illness Consult date: 03/24/20 Reason for consult: other Chief complaint: GIB - History of present illness History of present illness: 84 yo M with no pmhx who presents to ER after syncopal episode. Patient was having a BM and passed out, waking up in a pool of blood. He states he has never like this happen to him before. NO abdominal pain, n/v. He has never noticed black BMs. No f/c. No cp, sob. He feels well overall. No EGD/cscope in past. Pt had EGD today and was found to have moderate bright and dark red blood along with blood clots in the stomach, a friable antral mass along with a smaller lesion near the GE junction. Biopsies were obtained. Currently, the patient states he feels well. Past History Past Medical History: No medical history Past Surgical History: No surgical history Social history: no significant social history Family history: no significant family history Medications and Allergies Allergies Allergy/AdvReac Type Severity Reaction Status Date / Time No Known Allergies Allergy Unverified 04/07/13 09:22 Home Medications Medication Instructions Recorded Confirmed Last Taken Type No Known Home Medications [No 03/24/20 03/24/20 Unknown History Reported Home Medications] Active Meds: Active Medications Sodium Chloride (Nacl 0.9% 1000 Ml) 1,000 mls @ 50 mls/hr IV DIRECT BROOKE Pantoprazole Sodium 80 mg/ (Sodium Chloride) 100 mls @ 10 mls/hr IV DIRECT BROOKE Last Admin: 03/24/20 15:12 Dose: 8 mg/hr, 10 mls/hr Documented by: Sucralfate (Carafate) 1 gm PO ACHS BROOKE Review of Systems All systems: negative (10 pt ROS performed and negative except for that listed in HPI) Exam Vital Signs Temp Pulse Resp BP Pulse Ox 97.5 F L 96 H 19 100/71 96 03/24/20 10:44 03/24/20 10:44 03/24/20 10:44 03/24/20 10:44 03/24/20 10:44 Narrative exam: Gen: AAOx3. NAD ENT: no scleral icterus or conjunctival pallor CV: s1, S2+ Resp: even and unlabored Abd: soft, NT, ND Ext: no c/c/e Results - Labs 03/24/20 11:08 03/24/20 11:08 Abnormal lab results 03/24/20 03/24/20 03/24/20 Range/Units 11:08 11:08 11:08 Hgb 8.2 L (11.8-15.2) gm/dl Hct 25.9 L (35.5-45.6) % MCV 60 L (84-94) fl MCH 19 L (28-32) pg RDW 21.2 H (13.2-15.2) % APTT 20.0 L (24.2-36.6) Sec. Chloride 109.7 H (98-107) mmol/L Carbon Dioxide 21 L (22-30) mmol/L BUN 26 H (9-20) mg/dL Glucose 146 H (75-100) mg/dL ALT 6 L (7-56) units/L Total Protein 6.0 L (6.3-8.2) g/dL Albumin 3.6 L (3.9-5) g/dL Crossmatch 03/24/20 Range/Units 11:08 Hgb (11.8-15.2) gm/dl Hct (35.5-45.6) % MCV (84-94) fl MCH (28-32) pg RDW (13.2-15.2) % APTT (24.2-36.6) Sec. Chloride (98-107) mmol/L Carbon Dioxide (22-30) mmol/L BUN (9-20) mg/dL Glucose (75-100) mg/dL ALT (7-56) units/L Total Protein (6.3-8.2) g/dL Albumin (3.9-5) g/dL Crossmatch See Detail Diabetes panel 03/24/20 Range/Units 11:08 Sodium 144 (137-145) mmol/L Potassium 3.8 (3.6-5.0) mmol/L Chloride 109.7 H (98-107) mmol/L Carbon Dioxide 21 L (22-30) mmol/L BUN 26 H (9-20) mg/dL Creatinine 0.9 (0.8-1.3) mg/dL Glucose 146 H (75-100) mg/dL Calcium 8.9 (8.4-10.2) mg/dL AST 12 (5-40) units/L ALT 6 L (7-56) units/L Alkaline Phosphatase 62 (35-129) units/L Total Protein 6.0 L (6.3-8.2) g/dL Albumin 3.6 L (3.9-5) g/dL Calcium panel 03/24/20 Range/Units 11:08 Calcium 8.9 (8.4-10.2) mg/dL Albumin 3.6 L (3.9-5) g/dL Pituitary panel 03/24/20 Range/Units 11:08 Sodium 144 (137-145) mmol/L Potassium 3.8 (3.6-5.0) mmol/L Chloride 109.7 H (98-107) mmol/L Carbon Dioxide 21 L (22-30) mmol/L BUN 26 H (9-20) mg/dL Creatinine 0.9 (0.8-1.3) mg/dL Glucose 146 H (75-100) mg/dL Calcium 8.9 (8.4-10.2) mg/dL Adrenal panel 03/24/20 Range/Units 11:08 Sodium 144 (137-145) mmol/L Potassium 3.8 (3.6-5.0) mmol/L Chloride 109.7 H (98-107) mmol/L Carbon Dioxide 21 L (22-30) mmol/L BUN 26 H (9-20) mg/dL Creatinine 0.9 (0.8-1.3) mg/dL Glucose 146 H (75-100) mg/dL Calcium 8.9 (8.4-10.2) mg/dL Total Bilirubin 0.20 (0.1-1.2) mg/dL AST 12 (5-40) units/L ALT 6 L (7-56) units/L Alkaline Phosphatase 62 (35-129) units/L Total Protein 6.0 L (6.3-8.2) g/dL Albumin 3.6 L (3.9-5) g/dL Assessment and Plan 84 yo M with 1. anemia 2. UGIB 3. gastric mass, concerning for malignancy Pt currently stable, receiving 1 Unit PRBC. Plan: 1. NPO 2. IVF 3. recommend CT scan A/P with oral and IV contrast 4. trend H/H 5. transfuse prn 6. PPI gtt 7. await pathology results from EGD 8. If gastric malignancy found, recommend transfer to facility with surgical oncology. Discussed case with Dr. Pyle. Results of labs, EGD discussed with patient and surgical recommendations explained. All questions answered. Patient asked me to update his friend Karyn which I did over the telephone in his presence. Thank you for this consultation. Please call with any questions or concerns. Evaluation and treatment of this patient was during the time of the national and state emergency arising from COVID19 coronavirus pandemic. Treatment and procedures performed meet the current and available best practice and guidelines for patient during the COVID pandemic.
[2020-03-24] MEDS: SUCRALFATE 1 GM/10 ML ORAL LIQD PO SCH ×2 (17:41→22:36)
[2020-03-24] MEDS: SODIUM CHLORIDE 0.9% 1000 ML 1,000 ML IV SCH (17:41)
--- NOTE | 2020-03-24 21:07 | History and Physical Report ---
History of Present Illness Date of examination: 03/24/20 Date of admission: 03/24/20 14:34 Chief complaint: Vomiting blood since a.m. History of present illness: 84-year-old -Thai male with history of hypertension and hyperlipidemia comes in for vomiting blood since morning. Patient apparently passed out after vomiting large amount of blood. No hematemesis in the past. No epigastric pain. He is alert and oriented. No fever. Feels weak. No [place] tochezia. No exposure to coronavirus. 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 Old records reviewed. - Past Medical History Hypertension: Yes CVA: Yes Additional medical history: enlarged prostate - Surgical History Additional Surgical History: "prostate surgery" & "cataract surgery" - Social History Smoking Status: Never Smoker Substance Use Type: None Family history Htn - Medications Home Medications: Home Medications Medication Instructions Recorded Confirmed Last Taken Type Acetaminophen [Acetaminophen TAB] 500 mg PO BID 05/02/14 03/12/18 05/02/14 History Docusate Sodium [Colace CAP] 100 mg PO BID 05/02/14 03/12/18 05/02/14 History Aspirin 325 mg PO QDAY #30 tablet 03/12/18 Unknown Rx AtorvaSTATin [Lipitor] 40 mg PO QHS #30 tablet 03/12/18 Unknown Rx Losartan/Hydrochlorothiazide 50 mg PO DAILY #30 tablet 03/12/18 Unknown Rx [Hyzaar 50-12.5 TAB] Ciprofloxacin HCl [Cipro] 500 mg PO BID #14 tablet 09/26/18 Unknown Rx Meclizine [Antivert] 25 mg PO TID PRN #10 tablet 09/26/18 Unknown Rx Review of Systems ROS: Stated complaint: NAUSEA/POSS UPPER GI BLEED Other details as noted in HPI Constitutional: denies: chills, fever Eyes: denies: eye pain, eye discharge, vision change ENT: denies: ear pain, throat pain Respiratory: denies: cough, shortness of breath Cardiovascular: denies: chest pain, palpitations Endocrine: no symptoms reported Gastrointestinal: as per HPI, hematemesis (Very likely). denies: abdominal pain, nausea, diarrhea Genitourinary: denies: urgency, dysuria Musculoskeletal: denies: back pain, joint swelling, arthralgia Skin: denies: rash, lesions Neurological: denies: headache, weakness, paresthesias Psychiatric: denies: anxiety, depression Hematological/Lymphatic: denies: easy bleeding, easy bruising Past History Past Medical History: No medical history Past Surgical History: No surgical history Social history: no significant social history Family history: no significant family history Medications and Allergies Allergies Allergy/AdvReac Type Severity Reaction Status Date / Time No Known Allergies Allergy Unverified 04/07/13 09:22 Home Medications Medication Instructions Recorded Confirmed Last Taken Type No Known Home Medications [No 03/24/20 03/24/20 Unknown History Reported Home Medications] Active Meds: Active Medications Sodium Chloride (Nacl 0.9% 1000 Ml) 1,000 mls @ 50 mls/hr IV DIRECT BROOKE Last Admin: 03/24/20 17:41 Dose: 50 mls/hr Documented by: Pantoprazole Sodium 80 mg/ (Sodium Chloride) 100 mls @ 10 mls/hr IV DIRECT BROOKE Last Admin: 03/24/20 15:12 Dose: 8 mg/hr, 10 mls/hr Documented by: Sucralfate (Carafate) 1 gm PO ACHS BROOKE Last Admin: 03/24/20 17:41 Dose: 1 gm Documented by: Exam - Constitutional Vitals: Temp Pulse Resp BP Pulse Ox 99.1 F 90 20 142/83 97 03/24/20 20:00 03/24/20 17:54 03/24/20 19:29 03/24/20 17:54 03/24/20 19:29 General appearance: Present: no acute distress, well-nourished - EENT Eyes: Present: PERRL ENT: hearing intact, clear oral mucosa - Neck Neck: Present: supple, normal ROM - Respiratory Respiratory effort: normal Respiratory: bilateral: CTA - Cardiovascular Heart rate: 98 Rhythm: regular (98) Heart Sounds: Present: S1 & S2. Absent: rub, click - Extremities Extremities: pulses symmetrical, No edema Peripheral Pulses: within normal limits - Abdominal General gastrointestinal: Present: soft, non-tender, non-distended, normal bowel sounds Male genitourinary: Present: normal - Rectal Rectal Exam: stool dark - Integumentary Integumentary: Present: clear, warm, dry - Musculoskeletal Musculoskeletal: gait normal, strength equal bilaterally - Psychiatric Psychiatric: appropriate mood/affect, intact judgment & insight - Neurologic Neurologic: CNII-XII intact, moves all extremities - Allied Health Allied health notes reviewed: nursing, case management HEART Score - HEART Score History: Slightly suspicious Age: > 65 Risk factors: 1-2 risk factors Troponin: < normal limit - Critical Actions Critical Actions: 0-3 pts:0.9-1.7%risk of adverse cardiac event.Candidate for discharge Results - Labs CBC & Chem 7: 03/24/20 21:33 03/24/20 11:08 Labs: Laboratory Last Values WBC 9.8 K/mm3 (4.5-11.0) 03/24/20 11:08 RBC 4.34 M/mm3 (3.65-5.03) 03/24/20 11:08 Hgb 8.2 gm/dl (11.8-15.2) L 03/24/20 11:08 Hct 25.9 % (35.5-45.6) L 03/24/20 11:08 MCV 60 fl (84-94) L 03/24/20 11:08 MCH 19 pg (28-32) L 03/24/20 11:08 MCHC 32 % (32-34) 03/24/20 11:08 RDW 21.2 % (13.2-15.2) H 03/24/20 11:08 Plt Count 235 K/mm3 (140-440) 03/24/20 11:08 Lymph # (Auto) Rim Fire Charger Operator 03/24/20 11:08 Add Manual Diff Complete 03/24/20 11:08 Total Counted 100 03/24/20 11:08 Seg Neuts % (Manual) 63.0 % (40.0-70.0) 03/24/20 11:08 Band Neutrophils % 0 % 03/24/20 11:08 Lymphocytes % (Manual) 30.0 % (13.4-35.0) 03/24/20 11:08 Reactive Lymphs % (Man) 0 % 03/24/20 11:08 Monocytes % (Manual) 5.0 % (0.0-7.3) 03/24/20 11:08 Eosinophils % (Manual) 2.0 % (0.0-4.3) 03/24/20 11:08 Basophils % (Manual) 0 % (0.0-1.8) 03/24/20 11:08 Metamyelocytes % 0 % 03/24/20 11:08 Myelocytes % 0 % 03/24/20 11:08 Promyelocytes % 0 % 03/24/20 11:08 Blast Cells % 0 % 03/24/20 11:08 Nucleated RBC % Not Reportable 03/24/20 11:08 Seg Neutrophils # Man 6.2 K/mm3 (1.8-7.7) 03/24/20 11:08 Band Neutrophils # 0.0 K/mm3 03/24/20 11:08 Lymphocytes # (Manual) 2.9 K/mm3 (1.2-5.4) 03/24/20 11:08 Abs React Lymphs (Man) 0.0 K/mm3 03/24/20 11:08 Monocytes # (Manual) 0.5 K/mm3 (0.0-0.8) 03/24/20 11:08 Eosinophils # (Manual) 0.2 K/mm3 (0.0-0.4) 03/24/20 11:08 Basophils # (Manual) 0.0 K/mm3 (0.0-0.1) 03/24/20 11:08 Metamyelocytes # 0.0 K/mm3 03/24/20 11:08 Myelocytes # 0.0 K/mm3 03/24/20 11:08 Promyelocytes # 0.0 K/mm3 03/24/20 11:08 Blast Cells # 0.0 K/mm3 03/24/20 11:08 WBC Morphology Not Reportable 03/24/20 11:08 Hypersegmented Neuts Not Reportable 03/24/20 11:08 Hyposegmented Neuts Not Reportable 03/24/20 11:08 Hypogranular Neuts Not Reportable 03/24/20 11:08 Smudge Cells Not Reportable 03/24/20 11:08 Toxic Granulation Not Reportable 03/24/20 11:08 Toxic Vacuolation Not Reportable 03/24/20 11:08 Dohle Bodies Not Reportable 03/24/20 11:08 Pelger-Huet Anomaly Not Reportable 03/24/20 11:08 Jackie Rods Not Reportable 03/24/20 11:08 Platelet Estimate Consistent w auto 03/24/20 11:08 Clumped Platelets Not Reportable 03/24/20 11:08 Plt Clumps, EDTA Not Reportable 03/24/20 11:08 Large Platelets Not Reportable 03/24/20 11:08 Giant Platelets Not Reportable 03/24/20 11:08 Platelet Satelliting Not Reportable 03/24/20 11:08 Plt Morphology Comment Not Reportable 03/24/20 11:08 RBC Morphology Not Reportable 03/24/20 11:08 Dimorphic RBCs Not Reportable 03/24/20 11:08 Polychromasia Rare 03/24/20 11:08 Hypochromasia 1+ 03/24/20 11:08 Poikilocytosis Not Reportable 03/24/20 11:08 Anisocytosis 2+ 03/24/20 11:08 Microcytosis 2+ 03/24/20 11:08 Macrocytosis Not Reportable 03/24/20 11:08 Spherocytes Not Reportable 03/24/20 11:08 Pappenheimer Bodies Not Reportable 03/24/20 11:08 Sickle Cells Not Reportable 03/24/20 11:08 Target Cells Rare 03/24/20 11:08 Tear Drop Cells Not Reportable 03/24/20 11:08 Ovalocytes Not Reportable 03/24/20 11:08 Helmet Cells Not Reportable 03/24/20 11:08 Lyons-Numa Bodies Not Reportable 03/24/20 11:08 Graham Rings Not Reportable 03/24/20 11:08 Froylan Cells Not Reportable 03/24/20 11:08 Bite Cells Not Reportable 03/24/20 11:08 Crenated Cell Not Reportable 03/24/20 11:08 Elliptocytes Not Reportable 03/24/20 11:08 Acanthocytes (Spur) Not Reportable 03/24/20 11:08 Rouleaux Not Reportable 03/24/20 11:08 Hemoglobin C Crystals Not Reportable 03/24/20 11:08 Schistocytes Few 03/24/20 11:08 Malaria parasites Not Reportable 03/24/20 11:08 Kareem Bodies Not Reportable 03/24/20 11:08 Hem Pathologist Commnt No 03/24/20 11:08 PT 13.8 Sec. (12.2-14.9) 03/24/20 11:08 INR 1.04 (0.87-1.13) 03/24/20 11:08 APTT 20.0 Sec. (24.2-36.6) L 03/24/20 11:08 Sodium 144 mmol/L (137-145) 03/24/20 11:08 Potassium 3.8 mmol/L (3.6-5.0) 03/24/20 11:08 Chloride 109.7 mmol/L (98-107) H 03/24/20 11:08 Carbon Dioxide 21 mmol/L (22-30) L 03/24/20 11:08 Anion Gap 17 mmol/L 03/24/20 11:08 BUN 26 mg/dL (9-20) H 03/24/20 11:08 Creatinine 0.9 mg/dL (0.8-1.3) 03/24/20 11:08 Estimated GFR > 60 ml/min 03/24/20 11:08 BUN/Creatinine Ratio 29 % 03/24/20 11:08 Glucose 146 mg/dL (75-100) H 03/24/20 11:08 Calcium 8.9 mg/dL (8.4-10.2) 03/24/20 11:08 Magnesium 1.90 mg/dL (1.7-2.3) 03/24/20 11:08 Total Bilirubin 0.20 mg/dL (0.1-1.2) 03/24/20 11:08 Direct Bilirubin < 0.2 mg/dL (0-0.2) 03/24/20 11:08 AST 12 units/L (5-40) 03/24/20 11:08 ALT 6 units/L (7-56) L 03/24/20 11:08 Alkaline Phosphatase 62 units/L (35-129) 03/24/20 11:08 Total Protein 6.0 g/dL (6.3-8.2) L 03/24/20 11:08 Albumin 3.6 g/dL (3.9-5) L 03/24/20 11:08 Albumin/Globulin Ratio 1.5 % 03/24/20 11:08 Blood Type A POSITIVE 03/24/20 11:08 Antibody Screen Negative 03/24/20 11:08 Crossmatch See Detail 03/24/20 11:08 Short CBC 03/24/20 03/24/20 Range/Units 11:08 21:33 WBC 9.8 (4.5-11.0) K/mm3 Hgb 8.2 L 8.2 L (11.8-15.2) gm/dl Hct 25.9 L 25.4 L (35.5-45.6) % Plt Count 235 (140-440) K/mm3 BMP 03/24/20 11:08 Sodium 144 Potassium 3.8 Chloride 109.7 H Carbon Dioxide 21 L BUN 26 H Creatinine 0.9 Glucose 146 H Calcium 8.9 Liver Function 03/24/20 Range/Units 11:08 Total Bilirubin 0.20 (0.1-1.2) mg/dL Direct Bilirubin < 0.2 (0-0.2) mg/dL AST 12 (5-40) units/L ALT 6 L (7-56) units/L Alkaline Phosphatase 62 (35-129) units/L Albumin 3.6 L (3.9-5) g/dL Da Silva/IV: Voiding Method Urinal IV Catheter Type [Right Wrist] INT / Saline Lock IV Catheter Type [Left INT / Saline Lock Antecubital] IV Catheter Type [Right Peripheral IV Antecubital] Assessment and Plan Advance Directives: Yes - Patient Problems (1) GI bleed Current Visit: Yes Status: Acute Qualifiers: GI bleed type/associated pathology: gastrointestinal hemorrhage with hematemesis Qualified Code(s): K92.0 - Hematemesis Plan to address problem: Patient had emergent endoscopy in the emergency room. Endoscopy showed gastric mass which was tattooed. Biopsies taken. If biopsy positive for cancer patient to be transferred for surgical oncology evaluation to tertiary center. IV Protonix drip in the meantime. IV fluids. GI consult appreciated. (2) Anemia due to acute blood loss Current Visit: Yes Status: Acute Plan to address problem: Transfuse 1 to 2 units of blood Monitor H&H every 8 hours and transfuse as necessary (3) Gastric carcinoma Current Visit: Yes Status: Acute Plan to address problem: Possible gastric carcinoma Will wait for the biopsy results Surgery consult appreciated (4) HTN (hypertension) Current Visit: No Status: Chronic Qualifiers: Hypertension type: essential hypertension Qualified Code(s): I10 - Essential (primary) hypertension Plan to address problem: Patient is n.p.o. We will initiate Catapres patch if necessary Patient is borderline hypotensive now (5) Hyperlipidemia Current Visit: Yes Status: Chronic Qualifiers: Hyperlipidemia type: mixed hyperlipidemia Qualified Code(s): E78.2 - Mixed hyperlipidemia Plan to address problem: Hold statins for now (6) DVT prophylaxis Current Visit: Yes Status: Acute Plan to address problem: On SCDs and GI prophylaxis
[2020-03-24] MEDS ORDERED: METOCLOPRAMIDE 10 MG/2 ML INJ IV PRN (21:10)
[2020-03-24] MEDS ORDERED: HYDROmorphone 1 MG/1 ML INJ IV PRN (21:10)
[2020-03-24] MEDS ORDERED: ACETAMINOPHEN 325 MG TAB PO PRN (21:10)
[2020-03-24] MEDS ORDERED: ONDANSETRON 4 MG/2 ML INJ IV PRN (21:10)
[2020-03-24 21:52] LABS: Hematocrit 25.4 % (35.5-45.6); Hemoglobin 8.2 gm/dl (11.8-15.2)
[2020-03-25] MEDS: PANTOPRAZOLE 80 MG in SODIUM CHLORIDE 0.9% 100 ML IV SCH ×3 (01:59→23:10)
[2020-03-25 06:20] LABS: Basophils # (Auto) 0.1 K/mm3 (0.0-0.1); Basophils % (Auto) 0.6 % (0.0-1.8); Eosinophils # (Auto) 0.2 K/mm3 (0.0-0.4); Eosinophils % (Auto) 2.2 % (0.0-4.3); Hematocrit 24.1 % (35.5-45.6); Hemoglobin 7.6 gm/dl (11.8-15.2); Lymphocytes # (Auto) 2.6 K/mm3 (1.2-5.4); Lymphocytes % (Auto) 31.1 % (13.4-35.0); Mean Corpuscular HGB Conc 32 % (32-34); Mean Corpuscular Volume 62 fl (84-94); Monocytes # (Auto) 0.8 K/mm3 (0.0-0.8); Monocytes % (Auto) 9.3 % (0.0-7.3); Platelet Count 186 K/mm3 (140-440); Red Blood Count 3.89 M/mm3 (3.65-5.03); Red Cell Distribution Width 23.1 % (13.2-15.2)
[2020-03-25 07:32] LABS: Alanine Aminotransferase 6 units/L (7-56); Albumin 3.2 g/dL (3.9-5); BUN/Creatinine Ratio 24; Blood Urea Nitrogen 22 mg/dL (9-20); Calcium 8.5 mg/dL (8.4-10.2); Hemolysis Index 8
[2020-03-25] MEDS: SUCRALFATE 1 GM/10 ML ORAL LIQD PO SCH ×4 (08:04→21:06)
[2020-03-25] MEDS: SODIUM CHLORIDE 0.9% 1000 ML 1,000 ML IV SCH ×2 (10:50→23:57)
--- NOTE | 2020-03-25 13:58 | Progress Note ---
Assessment and Plan Assessment and plan: 1) GI bleed Current Visit: Yes Status: Acute Qualifiers: GI bleed type/associated pathology: gastrointestinal hemorrhage with hematemesis Qualified Code(s): K92.0 - Hematemesis Plan to address problem: Patient had emergent endoscopy in the emergency room. Endoscopy showed gastric mass which was tattooed. Biopsies taken. If biopsy positive for cancer patient to be transferred for surgical oncology evaluation to tertiary center. IV Protonix drip in the meantime. CT abdomen and pelvis with oral and IV contrast - will need to be transferred if he has malignancy (2) Anemia due to acute blood loss Current Visit: Yes Status: Acute Plan to address problem: Transfuse 1 to 2 units of blood Monitor H&H every 8 hours and transfuse as necessary (3) Possible Gastric cancer Current Visit: Yes Status: Acute Plan to address problem: CT abdomen and pelvis ordered Will wait for the biopsy results Surgery consult appreciated (4) HTN (hypertension) Current Visit: No Status: Chronic Qualifiers: Hypertension type: essential hypertension Qualified Code(s): I10 - Essential (primary) hypertension Plan to address problem: Monitor BP (5) Hyperlipidemia Current Visit: Yes Status: Chronic Qualifiers: Hyperlipidemia type: mixed hyperlipidemia Qualified Code(s): E78.2 - Mixed hyperlipidemia Plan to address problem: Hold statins for now (6) DVT prophylaxis Current Visit: Yes Status: Acute Plan to address problem: On SCDs and GI prophylaxis History Interval history: Patient seen and examined at bedside this morning. He has no complaints today. He will need to have a CT chest abdomen and pelvis with oral and IV contrast to evaluate for any underlying malignancy. Hospitalist Physical - Constitutional Vitals: Temp Pulse Resp BP Pulse Ox 98.6 F 72 13 132/71 100 03/25/20 12:00 03/25/20 13:00 03/25/20 13:00 03/25/20 13:00 03/25/20 13:00 General appearance: Present: no acute distress, well-nourished - EENT Eyes: Present: PERRL - Respiratory Respiratory: bilateral: CTA - Cardiovascular Rhythm: regular Heart Sounds: Present: S1 & S2 - Abdominal General gastrointestinal: soft, non-tender, non-distended HEART Score - HEART Score Age: > 65 Risk factors: 1-2 risk factors Troponin: < normal limit - Critical Actions Critical Actions: 0-3 pts:0.9-1.7%risk of adverse cardiac event.Candidate for discharge Results - Labs CBC & Chem 7: 03/25/20 05:31 03/25/20 05:31 Labs: Laboratory Last Values WBC 8.2 K/mm3 (4.5-11.0) 03/25/20 05:31 RBC 3.89 M/mm3 (3.65-5.03) 03/25/20 05:31 Hgb 7.6 gm/dl (11.8-15.2) L 03/25/20 05:31 Hct 24.1 % (35.5-45.6) L 03/25/20 05:31 MCV 62 fl (84-94) L 03/25/20 05:31 MCH 20 pg (28-32) L 03/25/20 05:31 MCHC 32 % (32-34) 03/25/20 05:31 RDW 23.1 % (13.2-15.2) H 03/25/20 05:31 Plt Count 186 K/mm3 (140-440) 03/25/20 05:31 Lymph % (Auto) 31.1 % (13.4-35.0) 03/25/20 05:31 [place] % (Auto) 9.3 % (0.0-7.3) H 03/25/20 05:31 Eos % (Auto) 2.2 % (0.0-4.3) 03/25/20 05:31 Baso % (Auto) 0.6 % (0.0-1.8) 03/25/20 05:31 Lymph # (Auto) 2.6 K/mm3 (1.2-5.4) 03/25/20 05:31 [place] # (Auto) 0.8 K/mm3 (0.0-0.8) 03/25/20 05:31 Eos # (Auto) 0.2 K/mm3 (0.0-0.4) 03/25/20 05:31 Baso # (Auto) 0.1 K/mm3 (0.0-0.1) 03/25/20 05:31 Add Manual Diff Complete 03/24/20 11:08 Total Counted 100 03/24/20 11:08 Seg Neutrophils % 56.8 % (40.0-70.0) 03/25/20 05:31 Seg Neuts % (Manual) 63.0 % (40.0-70.0) 03/24/20 11:08 Band Neutrophils % 0 % 03/24/20 11:08 Lymphocytes % (Manual) 30.0 % (13.4-35.0) 03/24/20 11:08 Reactive Lymphs % (Man) 0 % 03/24/20 11:08 Monocytes % (Manual) 5.0 % (0.0-7.3) 03/24/20 11:08 Eosinophils % (Manual) 2.0 % (0.0-4.3) 03/24/20 11:08 Basophils % (Manual) 0 % (0.0-1.8) 03/24/20 11:08 Metamyelocytes % 0 % 03/24/20 11:08 Myelocytes % 0 % 03/24/20 11:08 Promyelocytes % 0 % 03/24/20 11:08 Blast Cells % 0 % 03/24/20 11:08 Nucleated RBC % Not Reportable 03/24/20 11:08 Seg Neutrophils # 4.7 K/mm3 (1.8-7.7) 03/25/20 05:31 Seg Neutrophils # Man 6.2 K/mm3 (1.8-7.7) 03/24/20 11:08 Band Neutrophils # 0.0 K/mm3 03/24/20 11:08 Lymphocytes # (Manual) 2.9 K/mm3 (1.2-5.4) 03/24/20 11:08 Abs React Lymphs (Man) 0.0 K/mm3 03/24/20 11:08 Monocytes # (Manual) 0.5 K/mm3 (0.0-0.8) 03/24/20 11:08 Eosinophils # (Manual) 0.2 K/mm3 (0.0-0.4) 03/24/20 11:08 Basophils # (Manual) 0.0 K/mm3 (0.0-0.1) 03/24/20 11:08 Metamyelocytes # 0.0 K/mm3 03/24/20 11:08 Myelocytes # 0.0 K/mm3 03/24/20 11:08 Promyelocytes # 0.0 K/mm3 03/24/20 11:08 Blast Cells # 0.0 K/mm3 03/24/20 11:08 WBC Morphology Not Reportable 03/24/20 11:08 Hypersegmented Neuts Not Reportable 03/24/20 11:08 Hyposegmented Neuts Not Reportable 03/24/20 11:08 Hypogranular Neuts Not Reportable 03/24/20 11:08 Smudge Cells Not Reportable 03/24/20 11:08 Toxic Granulation Not Reportable 03/24/20 11:08 Toxic Vacuolation Not Reportable 03/24/20 11:08 Dohle Bodies Not Reportable 03/24/20 11:08 Pelger-Huet Anomaly Not Reportable 03/24/20 11:08 Jackie Rods Not Reportable 03/24/20 11:08 Platelet Estimate Consistent w auto 03/24/20 11:08 Clumped Platelets Not Reportable 03/24/20 11:08 Plt Clumps, EDTA Not Reportable 03/24/20 11:08 Large Platelets Not Reportable 03/24/20 11:08 Giant Platelets Not Reportable 03/24/20 11:08 Platelet Satelliting Not Reportable 03/24/20 11:08 Plt Morphology Comment Not Reportable 03/24/20 11:08 RBC Morphology Not Reportable 03/24/20 11:08 Dimorphic RBCs Not Reportable 03/24/20 11:08 Polychromasia Rare 03/24/20 11:08 Hypochromasia 1+ 03/24/20 11:08 Poikilocytosis Not Reportable 03/24/20 11:08 Anisocytosis 2+ 03/24/20 11:08 Microcytosis 2+ 03/24/20 11:08 Macrocytosis Not Reportable 03/24/20 11:08 Spherocytes Not Reportable 03/24/20 11:08 Pappenheimer Bodies Not Reportable 03/24/20 11:08 Sickle Cells Not Reportable 03/24/20 11:08 Target Cells Rare 03/24/20 11:08 Tear Drop Cells Not Reportable 03/24/20 11:08 Ovalocytes Not Reportable 03/24/20 11:08 Helmet Cells Not Reportable 03/24/20 11:08 Lyons-Campanillas Bodies Not Reportable 03/24/20 11:08 [place] Rings Not Reportable 03/24/20 11:08 Froylan Cells Not Reportable 03/24/20 11:08 Bite Cells Not Reportable 03/24/20 11:08 Crenated Cell Not Reportable 03/24/20 11:08 Elliptocytes Not Reportable 03/24/20 11:08 Acanthocytes (Spur) Not Reportable 03/24/20 11:08 Rouleaux Not Reportable 03/24/20 11:08 Hemoglobin C Crystals Not Reportable 03/24/20 11:08 Schistocytes Few 03/24/20 11:08 Malaria parasites Not Reportable 03/24/20 11:08 Kareem Bodies Not Reportable 03/24/20 11:08 Hem Pathologist Commnt No 03/24/20 11:08 PT 13.8 Sec. (12.2-14.9) 03/24/20 11:08 INR 1.04 (0.87-1.13) 03/24/20 11:08 APTT 20.0 Sec. (24.2-36.6) L 03/24/20 11:08 Sodium 144 mmol/L (137-145) 03/25/20 05:31 Potassium 3.6 mmol/L (3.6-5.0) 03/25/20 05:31 Chloride 111.5 mmol/L (98-107) H 03/25/20 05:31 Carbon Dioxide 21 mmol/L (22-30) L 03/25/20 05:31 Anion Gap 15 mmol/L 03/25/20 05:31 BUN 22 mg/dL (9-20) H 03/25/20 05:31 Creatinine 0.9 mg/dL (0.8-1.3) 03/25/20 05:31 Estimated GFR > 60 ml/min 03/25/20 05:31 BUN/Creatinine Ratio 24 % 03/25/20 05:31 Glucose 98 mg/dL (75-100) 03/25/20 05:31 Hemoglobin A1c 5.9 % (4-6) 03/24/20 21:33 Calcium 8.5 mg/dL (8.4-10.2) 03/25/20 05:31 Magnesium 1.90 mg/dL (1.7-2.3) 03/24/20 11:08 Total Bilirubin 0.50 mg/dL (0.1-1.2) 03/25/20 05:31 Direct Bilirubin < 0.2 mg/dL (0-0.2) 03/24/20 11:08 AST 11 units/L (5-40) 03/25/20 05:31 ALT 6 units/L (7-56) L 03/25/20 05:31 Alkaline Phosphatase 55 units/L (35-129) 03/25/20 05:31 Total Protein 5.4 g/dL (6.3-8.2) L 03/25/20 05:31 Albumin 3.2 g/dL (3.9-5) L 03/25/20 05:31 Albumin/Globulin Ratio 1.5 % 03/25/20 05:31 Blood Type A POSITIVE 03/24/20 11:08 Antibody Screen Negative 03/24/20 11:08 Crossmatch See Detail 03/24/20 11:08 Da Silva/IV: Voiding Method Urinal IV Catheter Type [Right Wrist] INT / Saline Lock IV Catheter Type [Left INT / Saline Lock Antecubital] IV Catheter Type [Right Peripheral IV Antecubital] Active Medications - Current Medications Current Medications: Generic Name Dose Route Start Last Admin Trade Name Freq PRN Reason Stop Dose Admin Acetaminophen 650 mg 03/24/20 21:10 Tylenol PO Q4H PRN Pain MILD(1-3)/Fever >100.5/YADAV Hydromorphone HCl 1 mg 03/24/20 21:10 Dilaudid IV Q3H PRN Pain , Severe (7-10) Sodium Chloride 1,000 mls @ 75 mls/hr 03/24/20 13:15 03/25/20 10:50 Nacl 0.9% 1000 Ml IV 75 mls/hr DIRECT BROOKE Infusion Pantoprazole Sodium 80 mg/ 100 mls @ 10 mls/hr 03/24/20 14:00 03/25/20 12:50 Sodium Chloride IV 8 mg/hr DIRECT BROOKE 10 mls/hr Administration 8 MG/HR Metoclopramide HCl 10 mg 03/24/20 21:10 Reglan IV Q6H PRN Nausea And Vomiting Ondansetron HCl 4 mg 03/24/20 21:10 Zofran IV Q3H PRN Nausea And Vomiting Sodium Chloride 10 ml 03/24/20 22:00 03/25/20 10:47 Sodium Chloride Flush Syringe 10 Ml IV 10 ml BID BROOKE Administration Sodium Chloride 10 ml 03/24/20 21:10 Sodium Chloride Flush Syringe 10 Ml IV PRN PRN LINE FLUSH Sucralfate 1 gm 03/24/20 16:30 03/25/20 10:45 Carafate PO 1 gm ACHS BROOKE Administration
--- NOTE | 2020-03-25 16:37 | Progress Note ---
Assessment and Plan 84 yo M with 1. anemia 2. UGIB 3. gastric mass, concerning for malignancy Pt currently stable Plan: 1. NPO 2. IVF 3. CT scan A/P with oral and IV contrast 4. trend H/H. 8.2 -> 8.2 -> 7.6 5. transfuse prn 6. PPI gtt 7. await pathology results from EGD 8. If gastric malignancy found, recommend transfer to facility with surgical oncology. Thank you for this consultation. Please call with any questions or concerns. Evaluation and treatment of this patient was during the time of the national and state emergency arising from COVID19 coronavirus pandemic. Treatment and procedures performed meet the current and available best practice and guidelines for patient during the COVID pandemic. Subjective Date of service: 03/25/20 Narrative: Examined. He has no complaints. He has not had a bowel movement since being admitted to the hospital. He denies lightheadedness or dizziness. No abdominal pain. Objective Vital Signs - 12hr 03/25/20 03/25/20 03/25/20 04:45 05:00 05:15 Temperature Pulse Rate 89 85 82 Pulse Rate [ From Monitor] Respiratory 15 17 16 Rate Blood Pressure 104/56 121/68 102/59 O2 Sat by Pulse 96 97 Oximetry 03/25/20 03/25/20 03/25/20 05:30 05:45 06:00 Temperature Pulse Rate 81 81 82 Pulse Rate [ From Monitor] Respiratory 16 16 15 Rate Blood Pressure 101/62 104/71 118/68 O2 Sat by Pulse 98 98 99 Oximetry 03/25/20 03/25/20 03/25/20 06:15 06:30 06:45 Temperature Pulse Rate 80 80 78 Pulse Rate [ From Monitor] Respiratory 14 13 16 Rate Blood Pressure 125/66 103/75 113/67 O2 Sat by Pulse 100 97 100 Oximetry 03/25/20 03/25/20 03/25/20 07:00 07:15 07:30 Temperature Pulse Rate 78 83 78 Pulse Rate [ 81 From Monitor] Respiratory 20 15 14 Rate Blood Pressure 123/66 123/71 116/69 O2 Sat by Pulse 100 100 100 Oximetry 03/25/20 03/25/20 03/25/20 07:45 08:00 08:15 Temperature 98.0 F Pulse Rate 85 79 81 Pulse Rate [ From Monitor] Respiratory 12 17 15 Rate Blood Pressure 126/71 120/74 120/71 O2 Sat by Pulse 100 100 99 Oximetry 03/25/20 03/25/20 03/25/20 08:30 08:45 08:59 Temperature Pulse Rate 81 79 Pulse Rate [ From Monitor] Respiratory 12 14 Rate Blood Pressure 119/65 122/72 O2 Sat by Pulse 98 98 98 Oximetry 03/25/20 03/25/20 03/25/20 09:00 09:15 09:30 Temperature Pulse Rate 78 80 79 Pulse Rate [ From Monitor] Respiratory 11 L 12 16 Rate Blood Pressure 135/77 122/76 135/72 O2 Sat by Pulse 98 98 99 Oximetry 03/25/20 03/25/20 03/25/20 09:45 10:00 10:15 Temperature Pulse Rate 78 79 78 Pulse Rate [ From Monitor] Respiratory 14 14 15 Rate Blood Pressure 129/71 127/75 119/81 O2 Sat by Pulse 96 99 100 Oximetry 03/25/20 03/25/20 03/25/20 10:30 10:45 11:00 Temperature Pulse Rate 76 77 79 Pulse Rate [ 87 From Monitor] Respiratory 15 14 10 L Rate Blood Pressure 132/75 136/69 119/76 O2 Sat by Pulse 100 100 100 Oximetry 03/25/20 03/25/20 03/25/20 11:16 11:30 11:45 Temperature Pulse Rate 76 76 76 Pulse Rate [ From Monitor] Respiratory 12 14 15 Rate Blood Pressure 119/97 122/67 126/76 O2 Sat by Pulse 99 100 100 Oximetry 03/25/20 03/25/20 03/25/20 12:00 12:15 12:30 Temperature 98.6 F Pulse Rate 81 69 75 Pulse Rate [ From Monitor] Respiratory 17 16 17 Rate Blood Pressure 133/79 132/71 125/80 O2 Sat by Pulse 100 100 100 Oximetry 03/25/20 03/25/20 03/25/20 12:45 13:00 13:16 Temperature Pulse Rate 69 72 80 Pulse Rate [ From Monitor] Respiratory 15 13 19 Rate Blood Pressure 133/73 132/71 125/72 O2 Sat by Pulse 100 100 100 Oximetry 03/25/20 03/25/20 03/25/20 13:30 13:45 14:00 Temperature Pulse Rate 74 71 76 Pulse Rate [ From Monitor] Respiratory 16 15 12 Rate Blood Pressure 122/69 129/72 131/77 O2 Sat by Pulse 76 L 99 100 Oximetry 03/25/20 03/25/20 03/25/20 14:15 14:30 14:45 Temperature Pulse Rate 71 78 78 Pulse Rate [ From Monitor] Respiratory 16 17 14 Rate Blood Pressure 133/75 135/71 121/79 O2 Sat by Pulse 100 100 100 Oximetry 03/25/20 03/25/20 15:00 15:15 Temperature Pulse Rate 79 75 Pulse Rate [ 79 From Monitor] Respiratory 15 12 Rate Blood Pressure 138/81 134/73 O2 Sat by Pulse 98 99 Oximetry - General physical appearance Narrative Exam: Gen.: Awake, alert, oriented 3. No apparent distress ENT: Trachea midline. No lymphadenopathy. No scleral icterus or conjunctival pallor CV: S1, S2 present Respiratory: No audible wheezes Abdomen: Soft, nondistended, nontender. No rebound, rigidity, guarding Extremities: No clubbing, cyanosis, edema - Labs 03/25/20 05:31 03/25/20 05:31 Diabetes panel 03/24/20 03/25/20 Range/Units 21:33 05:31 Sodium 144 (137-145) mmol/L Potassium 3.6 (3.6-5.0) mmol/L Chloride 111.5 H (98-107) mmol/L Carbon Dioxide 21 L (22-30) mmol/L BUN 22 H (9-20) mg/dL Creatinine 0.9 (0.8-1.3) mg/dL Glucose 98 (75-100) mg/dL Hemoglobin A1c 5.9 (4-6) % Calcium 8.5 (8.4-10.2) mg/dL AST 11 (5-40) units/L ALT 6 L (7-56) units/L Alkaline Phosphatase 55 (35-129) units/L Total Protein 5.4 L (6.3-8.2) g/dL Albumin 3.2 L (3.9-5) g/dL Calcium panel 03/25/20 Range/Units 05:31 Calcium 8.5 (8.4-10.2) mg/dL Albumin 3.2 L (3.9-5) g/dL Pituitary panel 03/25/20 Range/Units 05:31 Sodium 144 (137-145) mmol/L Potassium 3.6 (3.6-5.0) mmol/L Chloride 111.5 H (98-107) mmol/L Carbon Dioxide 21 L (22-30) mmol/L BUN 22 H (9-20) mg/dL Creatinine 0.9 (0.8-1.3) mg/dL Glucose 98 (75-100) mg/dL Calcium 8.5 (8.4-10.2) mg/dL Adrenal panel 03/25/20 Range/Units 05:31 Sodium 144 (137-145) mmol/L Potassium 3.6 (3.6-5.0) mmol/L Chloride 111.5 H (98-107) mmol/L Carbon Dioxide 21 L (22-30) mmol/L BUN 22 H (9-20) mg/dL Creatinine 0.9 (0.8-1.3) mg/dL Glucose 98 (75-100) mg/dL Calcium 8.5 (8.4-10.2) mg/dL Total Bilirubin 0.50 (0.1-1.2) mg/dL AST 11 (5-40) units/L ALT 6 L (7-56) units/L Alkaline Phosphatase 55 (35-129) units/L Total Protein 5.4 L (6.3-8.2) g/dL Albumin 3.2 L (3.9-5) g/dL
--- NOTE | 2020-03-25 18:50 | Gastroenterology Progress Note ---
Assessment and Plan Patient with actively oozing gastric mass as well as second smaller lesion just distal to the GE junction both were biopsied, biopsies pending The gastric lesion which is actively oozing is a source the patient's GI bleed. Continue PPI and Carafate follow-up path results and final plan per surgery recommendations, appreciate surgery input Given no further endoscopic intervention is available for this type of lesion GI will sign off please call back with any questions or concerns - Patient Problems (1) GI bleed Current Visit: Yes Status: Acute Qualifiers: GI bleed type/associated pathology: gastrointestinal hemorrhage with hematemesis Qualified Code(s): K92.0 - Hematemesis (2) Loss of consciousness Current Visit: Yes Status: Acute (3) Anemia due to acute blood loss Current Visit: Yes Status: Acute Subjective Date of service: 03/25/20 Principal diagnosis: gi bleed Interval history: Patient voices no complaints just wants to know when will have a diagnosis for him Objective - Constitutional Vitals: Temp Pulse Resp BP Pulse Ox 97.9 F 79 17 141/75 97 03/25/20 16:00 03/25/20 18:30 03/25/20 18:30 03/25/20 18:30 03/25/20 18:30 General appearance: no acute distress, cachectic - EENT Eyes: EOM intact ENT: hearing intact - Respiratory Respiratory effort: normal - Gastrointestinal General gastrointestinal: Present: soft - Labs CBC & Chem 7: 03/25/20 05:31 03/25/20 05:31 Labs: Laboratory Results - last 24 hr 03/24/20 03/24/20 03/25/20 21:33 21:33 05:31 WBC 8.2 RBC 3.89 Hgb 8.2 L 7.6 L Hct 25.4 L 24.1 L MCV 62 L MCH 20 L MCHC 32 RDW 23.1 H Plt Count 186 Lymph % (Auto) 31.1 [place] % (Auto) 9.3 H Eos % (Auto) 2.2 Baso % (Auto) 0.6 Lymph # (Auto) 2.6 [place] # (Auto) 0.8 Eos # (Auto) 0.2 Baso # (Auto) 0.1 Seg Neutrophils % 56.8 Seg Neutrophils # 4.7 Sodium Potassium Chloride Carbon Dioxide Anion Gap BUN Creatinine Estimated GFR BUN/Creatinine Ratio Glucose Hemoglobin A1c 5.9 Calcium Total Bilirubin AST ALT Alkaline Phosphatase Total Protein Albumin Albumin/Globulin Ratio 03/25/20 05:31 WBC RBC Hgb Hct MCV MCH MCHC RDW Plt Count Lymph % (Auto) [place] % (Auto) Eos % (Auto) Baso % (Auto) Lymph # (Auto) [place] # (Auto) Eos # (Auto) Baso # (Auto) Seg Neutrophils % Seg Neutrophils # Sodium 144 Potassium 3.6 Chloride 111.5 H Carbon Dioxide 21 L Anion Gap 15 BUN 22 H Creatinine 0.9 Estimated GFR > 60 BUN/Creatinine Ratio 24 Glucose 98 Hemoglobin A1c Calcium 8.5 Total Bilirubin 0.50 AST 11 ALT 6 L Alkaline Phosphatase 55 Total Protein 5.4 L Albumin 3.2 L Albumin/Globulin Ratio 1.5
--- NOTE | 2020-03-25 23:04 | Cat Scan Report ---
CT abdomen pelvis w con INDICATION: gastric mass. TECHNIQUE: All CT scans at this location are performed using the following dose modulation technique: Automated exposure control. Helical slices were obtained through the abdomen and pelvis. 100 cc of Omnipaque 30 0 is administered. COMPARISON: None available. FINDINGS: There is mild atelectasis or scar in the lung bases. There is mild bronchiectasis. The liver, spleen, pancreas, adrenal glands, and kidneys show no acute abnormality. There is an irregular masslike lesi on in the distal stomach. There is apparent wall thickening in the proximal stomach. There are small nodes in the gastrohepatic ligament. Mild atherosclerotic calcifications are noted in the abdomen and pelvis. Pelvis: There is abnormal thickening of the wall of the urinary bladder posteriorly is asymmetric. Th e prostate gland is enlarged. There is a large amount of stool in the rectal vault. The appendix is unremarkable. There is no adenopathy. On review of bone windows, no acute abnormalities are seen. IMPRESSION: 1. There is an apparent mass lesion in the gastric antrum. This measures approximately 3.8 cm the mar gins are difficult to determine the stomach which is collapsed at this point. There is some thickenin g of the wall of the more proximal stomach which is a nonspecific finding. The stomach is mostly manuel apsed. There is abnormal thickening of the wall of the urinary bladder. This is also not specific but does r aise the possibility of neoplastic process in the bladder. Prostate gland is enlarged. There is a large amount of stool in the rectal vault. Signer Name: Yovani Rsoa MD Signed: 03/25/2020 10:59 PM Workstation Name: [id number]
[2020-03-26] MEDS: SUCRALFATE 1 GM/10 ML ORAL LIQD PO SCH ×3 (08:10→16:13)
[2020-03-26 10:09] LABS: Hematocrit 13.3 % (35.5-45.6); Hemoglobin 4.5 gm/dl (11.8-15.2)
[2020-03-26 10:11] LABS: BUN/Creatinine Ratio 16; Blood Urea Nitrogen 14 mg/dL (9-20); Calcium 8.3 mg/dL (8.4-10.2); Hemolysis Index 2
[2020-03-26] MEDS ORDERED: SODIUM CHLORIDE 0.9% 500 ML 500 ML IV NR (10:26)
--- NOTE | 2020-03-26 10:52 | Progress Note ---
Assessment and Plan 84 yo M with 1. anemia 2. UGIB 3. 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 GE junction bx - no dysplasia. H pylori negative. Plan: 1. NPO 2. IVF 3. trend H/H. 8.2 -> 8.2 -> 7.6 -> 4.5. 4. PRBC transfusion ordered for today - 2 Units being transfused and additional units available as needed 6. PPI gtt 7. final pathology results from EGD pending 8. Recommend transfer to [place] for surgical intervention. Discussed case with Dr. Guerrero (surgical oncology) who has accepted the patient for transfer. Awaiting bed assignment. D/W Dr. Lagunas. Patient updated on plan. Patient asked me to update his girlfriend Karyn and Daughter Lisa Hinojosa of the plan. I spoke with both and updated them. All questions answered. Thank you for this consultation. Please call with any questions or concerns. Evaluation and treatment of this patient was during the time of the national and state emergency arising from COVID19 coronavirus pandemic. Treatment and procedures performed meet the current and available best practice and guidelines for patient during the COVID pandemic. Subjective Date of service: 03/26/20 Narrative: Pt seen and examined. No complaints. Had brown colored BM today. NO n/v, f/c, abd pain, lightheadedness or dizziness. Objective Vital Signs - 12hr 03/25/20 03/25/20 03/25/20 23:00 23:08 23:11 Temperature 98.2 F Pulse Rate 89 84 Pulse Rate [ From Monitor] Respiratory 13 19 Rate Blood Pressure 155/90 155/90 O2 Sat by Pulse 99 100 Oximetry 03/25/20 03/25/20 03/25/20 23:15 23:30 23:45 Temperature Pulse Rate 92 H 86 86 Pulse Rate [ From Monitor] Respiratory 15 9 L 13 Rate Blood Pressure 162/84 169/82 168/84 O2 Sat by Pulse 99 98 96 Oximetry 03/26/20 03/26/20 03/26/20 00:00 00:04 00:16 Temperature Pulse Rate 94 H 93 H 90 Pulse Rate [ 93 H From Monitor] Respiratory 13 19 Rate Blood Pressure 156/83 132/68 O2 Sat by Pulse 100 98 Oximetry 03/26/20 03/26/20 03/26/20 00:30 00:45 01:00 Temperature Pulse Rate 89 89 88 Pulse Rate [ From Monitor] Respiratory 15 15 17 Rate Blood Pressure 142/88 147/74 145/76 O2 Sat by Pulse 96 97 98 Oximetry 03/26/20 03/26/20 03/26/20 01:15 01:30 01:46 Temperature Pulse Rate 84 83 83 Pulse Rate [ From Monitor] Respiratory 19 17 15 Rate Blood Pressure 159/79 146/82 146/82 O2 Sat by Pulse 95 96 99 Oximetry 03/26/20 03/26/20 03/26/20 02:01 02:15 02:30 Temperature Pulse Rate 84 89 87 Pulse Rate [ From Monitor] Respiratory 15 14 12 Rate Blood Pressure 143/69 124/74 126/70 O2 Sat by Pulse 95 95 96 Oximetry 03/26/20 03/26/20 03/26/20 02:45 03:01 03:15 Temperature Pulse Rate 87 98 H 96 H Pulse Rate [ From Monitor] Respiratory 16 18 14 Rate Blood Pressure 134/77 134/77 134/77 O2 Sat by Pulse 98 99 99 Oximetry 03/26/20 03/26/20 03/26/20 03:29 03:30 03:45 Temperature 98.2 F Pulse Rate 89 87 Pulse Rate [ From Monitor] Respiratory 18 19 Rate Blood Pressure 140/81 136/84 O2 Sat by Pulse 99 98 Oximetry 03/26/20 03/26/20 03/26/20 04:00 04:15 04:30 Temperature Pulse Rate 82 78 80 Pulse Rate [ 82 From Monitor] Respiratory 16 19 17 Rate Blood Pressure 143/82 133/85 141/86 O2 Sat by Pulse 98 94 98 Oximetry 03/26/20 03/26/20 03/26/20 04:45 05:00 05:15 Temperature Pulse Rate 85 77 87 Pulse Rate [ From Monitor] Respiratory 16 17 13 Rate Blood Pressure 143/82 116/77 138/88 O2 Sat by Pulse 92 98 96 Oximetry 03/26/20 03/26/20 03/26/20 05:31 05:45 06:00 Temperature Pulse Rate 82 Pulse Rate [ From Monitor] Respiratory 14 Rate Blood Pressure 138/88 138/88 150/86 O2 Sat by Pulse 98 98 99 Oximetry 03/26/20 03/26/20 03/26/20 06:15 06:30 06:45 Temperature Pulse Rate 83 76 77 Pulse Rate [ From Monitor] Respiratory 21 19 22 Rate Blood Pressure 148/76 147/78 146/79 O2 Sat by Pulse 98 97 98 Oximetry 03/26/20 03/26/20 03/26/20 07:00 07:15 07:30 Temperature Pulse Rate 72 71 67 Pulse Rate [ From Monitor] Respiratory 15 17 26 H Rate Blood Pressure 143/81 152/86 153/76 O2 Sat by Pulse 100 100 99 Oximetry 03/26/20 03/26/20 03/26/20 07:45 08:00 08:01 Temperature 98.1 F Pulse Rate 76 87 79 Pulse Rate [ 87 From Monitor] Respiratory 15 13 15 Rate Blood Pressure 139/81 138/80 O2 Sat by Pulse 100 100 99 Oximetry 03/26/20 03/26/20 03/26/20 08:15 08:30 08:45 Temperature Pulse Rate 90 85 70 Pulse Rate [ From Monitor] Respiratory 12 17 21 Rate Blood Pressure 138/80 138/72 144/78 O2 Sat by Pulse 93 99 99 Oximetry 03/26/20 03/26/20 03/26/20 08:50 09:00 09:15 Temperature Pulse Rate 69 79 Pulse Rate [ From Monitor] Respiratory 20 19 Rate Blood Pressure 140/76 140/81 O2 Sat by Pulse 99 98 98 Oximetry 03/26/20 03/26/20 03/26/20 09:30 09:45 10:00 Temperature Pulse Rate 77 75 75 Pulse Rate [ From Monitor] Respiratory 14 20 11 L Rate Blood Pressure 151/86 149/83 136/77 O2 Sat by Pulse 100 98 100 Oximetry 03/26/20 10:15 Temperature Pulse Rate 80 Pulse Rate [ From Monitor] Respiratory 16 Rate Blood Pressure 141/73 O2 Sat by Pulse 99 Oximetry - General physical appearance Narrative Exam: Gen: AAOx3. NAD CV: S1, S2+ Resp: even and unlabored Abd: soft, NT Ext: no c/c/e - Labs 03/26/20 09:28 03/26/20 09:05 Diabetes panel 03/26/20 Range/Units 09:05 Sodium 144 (137-145) mmol/L Potassium 3.4 L (3.6-5.0) mmol/L Chloride 112.8 H (98-107) mmol/L Carbon Dioxide 24 (22-30) mmol/L BUN 14 (9-20) mg/dL Creatinine 0.9 (0.8-1.3) mg/dL Glucose 95 (75-100) mg/dL Calcium 8.3 L (8.4-10.2) mg/dL Calcium panel 03/26/20 Range/Units 09:05 Calcium 8.3 L (8.4-10.2) mg/dL Pituitary panel 03/26/20 Range/Units 09:05 Sodium 144 (137-145) mmol/L Potassium 3.4 L (3.6-5.0) mmol/L Chloride 112.8 H (98-107) mmol/L Carbon Dioxide 24 (22-30) mmol/L BUN 14 (9-20) mg/dL Creatinine 0.9 (0.8-1.3) mg/dL Glucose 95 (75-100) mg/dL Calcium 8.3 L (8.4-10.2) mg/dL Adrenal panel 03/26/20 Range/Units 09:05 Sodium 144 (137-145) mmol/L Potassium 3.4 L (3.6-5.0) mmol/L Chloride 112.8 H (98-107) mmol/L Carbon Dioxide 24 (22-30) mmol/L BUN 14 (9-20) mg/dL Creatinine 0.9 (0.8-1.3) mg/dL Glucose 95 (75-100) mg/dL Calcium 8.3 L (8.4-10.2) mg/dL
[2020-03-26] MEDS: POTASSIUM CHLORIDE 10 MEQ 10 MEQ/100 ML BAG IV SCH ×4 (10:56→16:13)
[2020-03-26] MEDS ORDERED: SODIUM CHLORIDE 0.9% 500 ML 500 ML IV SCH (11:00)
--- NOTE | 2020-03-26 11:02 | Discharge Summary ---
Providers - Providers Date of Admission: 03/24/20 14:34 Date of discharge: 03/26/20 Attending physician: SURYA MOTT 03/24/20 11:11 Consult to Physician [CONS] Urgent Comment: Consulting Provider: ROSEANNE WORTHINGTON Physician Instructions: Reason For Exam: GI Bleeding Upper 03/24/20 13:44 Consult to Physician [CONS] Urgent Comment: Consulting Provider: TRUDY MALONE Physician Instructions: Reason For Exam: Bleeding gastric mass Hospitalization Reason for admission: Hematemesis Condition: Stable Hospital course: 84 year old with a medical history of HTN, CVA, hyperlipidemia who presented to the ED after a syncopal episode. Patient was having a BM and passed out, waking up in a pool of blood. He states he has never like this happen to him before. No abdominal pain, n/v. He has never noticed black BMs. Denies any chest pain, or sob. He feels well overall. No EGD/scope in past. Here in the ER, patient was found to have hemoglobin of 8. GI was consulted. He had EGD and was found to have moderate bright and dark red blood along with blood clots in the stomach, a friable antral mass along with a smaller lesion near the GE junction. Scope could not be advanced further. Biopsies were obtained from the gastric lesion and results still pending. Surgery was consulted and suggested CT abdomen and pelvis with oral and IV contrast to evaluate the mass further. Results showed mass lesion in the gastric antrum that measured 3.8 cm with some slight thickening in the wall of the proximal stomach. Also showed an abnormal thickening of the wall of the urinary bladder prostatic gland enlargement. As per surgery, patient will need to have surgical evaluation by surgical oncology. Patient has been accepted at [facility] for further evaluation. Patient remains n.p.o. and will continue on PPI drip. Patient's hemoglobin this morning is 4.5 and is getting 2 units of PRBCs. He may need to have further urologic work-up with a cystoscopy when acute GI bleed has resolved. Plan for transfer to another facility has been discussed with patient and he agrees. Accepting physician is Dr. Guerrero in [facility]. Disposition: [id number]/TX-[id number] ANOTHER TYPE HLTHCARE - Discharge Diagnoses (1) Gastric mass Status: Acute (2) Anemia due to acute blood loss Status: Acute (3) Upper GI bleeding Status: Acute (4) Mass of bladder Status: Acute (5) Acute metabolic encephalopathy Status: Resolved Core Measure Documentation - Palliative Care Palliative Care/ Comfort Measures: Not Applicable - Core Measures Any of the following diagnoses?: none Exam - Physical Exam Narrative exam: VITAL SIGNS: Reviewed. GENERAL: Awake and alert on response to questions HEAD: No signs of head trauma. EYES: Pupils are equal. Extraocular motions intact. EARS: Hearing grossly intact. MOUTH: Oropharynx is normal. NECK: No adenopathy, no JVD. CHEST: Chest with diminished breath sounds bilaterally. No wheezes, rales, or rhonchi. CARDIAC: Regular rate and rhythm. S1 and S2, without murmurs, gallops, or rubs. VASCULAR: No Edema. Peripheral pulses normal and equal in all extremities. ABDOMEN: Soft, non tender and non distended. No rebound or guarding, and no masses palpated. Bowel Sounds normal. MUSCULOSKELETAL: Good range of motion of all major joints. Extremities without clubbing, cyanosis or edema. NEUROLOGIC EXAM: Alert and oriented x3. No focal neurologic deficits PSYCHIATRIC: Stable mood SKIN: No obvious lesions - Constitutional Vitals: Temp Pulse Resp BP Pulse Ox 98.1 F 80 16 141/73 99 03/26/20 08:00 03/26/20 10:15 03/26/20 10:15 03/26/20 10:15 03/26/20 10:15 Plan Follow up with: ZAKIA KING [Other] - 3-5 Days Forms: Accompanied Note
[2020-03-26] MEDS: PANTOPRAZOLE 80 MG in SODIUM CHLORIDE 0.9% 100 ML IV SCH (12:59)
[2020-03-26] MEDS: SODIUM CHLORIDE 0.9% 1000 ML 1,000 ML IV SCH (13:05)
[2020-03-26 17:08] VITALS: BP 153/88
[2020-03-27] MEDS ORDERED: PANTOPRAZOLE 40 MG INJ IV SCH (16:30)
== END 2020-03-26 17:15 | disposition short-term general hospital (02) | DRG 377 ==
LOC: ED 10:27 → IMCU 14:34
PROVIDERS: ADMIT Internal Medicine; ATTEND Internal Medicine
PROC: 30233N1 Transfusion of Nonautologous Red Blood Cells into Peripheral Vein, Percutaneous Approach (ICD-10-PCS; principal; 2020-03-24)
PROC: 0DB48ZX Excision of Esophagogastric Junction, Via Natural or Artificial Opening Endoscopic, Diagnostic (ICD-10-PCS; 2020-03-24)
PROC: 0DB78ZX Excision of Stomach, Pylorus, Via Natural or Artificial Opening Endoscopic, Diagnostic (ICD-10-PCS; 2020-03-24)
DX: K25.4 Chronic or unspecified gastric ulcer with hemorrhage (principal); G93.41 Metabolic encephalopathy; D62 Acute posthemorrhagic anemia; R64 Cachexia; Z86.73 Personal history of transient ischemic attack (TIA), and cerebral infarction without residual deficits; I10 Essential (primary) hypertension; E78.5 Hyperlipidemia, unspecified; Z82.49 Family history of ischemic heart disease and other diseases of the circulatory system; Z68.23 Body mass index [BMI] 23.0-23.9, adult; K92.0 Hematemesis; N32.89 Other specified disorders of bladder; K44.9 Diaphragmatic hernia without obstruction or gangrene
CPT/HCPCS: 36415; 71045; 74177; 80048; 80053; 80076; 83036; 83735; 85007; 85014; 85018; 85025; 85027; 85610; 85730; 86850; 86900; 86901; 86920; 88305; 88312; 88342; 93005; G0378; C9113; J2704; J2765; J3480; J7030; J7040; P9016; Q9967

== ENCOUNTER 2020-11-20 11:02 | Emergency (ER) | payer MEDICARE ==
--- NOTE | 2020-11-20 13:37 | Emergency Department Report ---
ED ENT HPI - General Chief complaint: Dental/Oral Stated complaint: BLEEDING TEETH Source: patient Mode of arrival: Ambulatory Limitations: No Limitations - History of Present Illness Initial comments: 85-year-old -Hung[place] male who reports he has a history of colon cancer presents to the emergency room complaining of bleeding gums. Patient states that he had 4 teeth removed last Monday. Patient states this morning he woke up at 6 AM with bleeding from his gums. Patient denies any pain. Patient denies being on any blood thinners. He denies any nausea vomiting no fever no chills no nausea mouth pain. Patient denies any weakness dizziness shortness of breath or chest pain. -: This morning Time: 06:00 Location: other (Lower gums to the right side) Severity: mild Severity scale (0 -10): 1 Consistency: constant Improves with: none Worsens with: none Context- Dental: other (Teeth extraction 11/13/2020) Associated Symptoms: denies: fever, gum swelling, toothache, pain with swallowing - Related Data Home Medications Medication Instructions Recorded Confirmed Last Taken No Known Home Medications [No 03/24/20 03/24/20 Unknown Reported Home Medications] Allergies Allergy/AdvReac Type Severity Reaction Status Date / Time No Known Allergies Allergy Unverified 04/07/13 09:22 ED Dental HPI - General Chief complaint: Dental/Oral Stated complaint: BLEEDING TEETH Source: patient Mode of arrival: Ambulatory Limitations: No Limitations - Related Data Home Medications Medication Instructions Recorded Confirmed Last Taken No Known Home Medications [No 03/24/20 03/24/20 Unknown Reported Home Medications] Allergies Allergy/AdvReac Type Severity Reaction Status Date / Time No Known Allergies Allergy Unverified 04/07/13 09:22 ED Review of Systems ROS: Stated complaint: BLEEDING TEETH Other details as noted in HPI Comment: All other systems reviewed and negative ED Past Medical Hx - Past Medical History Previous Medical History?: Yes Hx Hypertension: Yes Hx CVA: Yes Additional medical history: enlarged prostate, stomach cancer - Surgical History Past Surgical History?: Yes Additional Surgical History: "prostate surgery" & "cataract surgery" - Social History Smoking Status: Never Smoker Substance Use Type: None - Medications Home Medications: Home Medications Medication Instructions Recorded Confirmed Last Taken Type No Known Home Medications [No 03/24/20 03/24/20 Unknown History Reported Home Medications] ED Physical Exam - General Limitations: No Limitations General appearance: alert, in no apparent distress - Head Head exam: Present: atraumatic, normocephalic - Eye Eye exam: Present: normal appearance - ENT ENT exam: Present: normal external ear exam, other (Right lower jaw maroon blood does not usually) - Neck Neck exam: Present: full ROM - Respiratory Respiratory exam: Present: normal lung sounds bilaterally - Cardiovascular Cardiovascular Exam: Present: regular rate - Extremities Exam Extremities exam: Present: full ROM - Neurological Exam Neurological exam: Present: alert, oriented X3, normal gait - Psychiatric Psychiatric exam: Present: normal affect, normal mood ED Course Vital Signs 11/20/20 12:12 Temperature 98.2 F Pulse Rate 61 Respiratory 18 Rate Blood Pressure 151/84 O2 Sat by Pulse 97 Oximetry ED Medical Decision Making - Medical Decision Making 85-year-old -Hung[place] male who reports he has a history of colon cancer presents to the emergency room complaining of bleeding gums. Patient states that he had 4 teeth removed last Monday. Patient states this morning he woke up at 6 AM with bleeding from his gums. Patient denies any pain. Patient denies being on any blood thinners. He denies any nausea vomiting no fever no chills no nausea mouth pain. Patient denies any weakness dizziness shortness of breath or chest pain. Placed that gauze for patient to bite down to apply pressure for bleeding. Advised patient to follow-up with his dentist Critical care attestation.: If time is entered above; I have spent that time in minutes in the direct care of this critically ill patient, excluding procedure time. ED Disposition Clinical Impression: Bleeding gums Disposition: DC- TO HOME OR SELFCARE Is pt being admited?: No Does the pt Need Aspirin: No Condition: Stable Additional Instructions: Recommend to continue with biting on gauze to apply pressure. And to follow-up with your dentist. Referrals: Your, dentist [Other] - 3-5 Days PRIMARY CARE,MD [Primary Care Provider] - 3-5 Days
[2020-11-20 13:38] VITALS: BP 151/84
== END 2020-11-20 14:00 | disposition home or self-care (01) ==
LOC: ED 11:02
DX: K06.8 Other specified disorders of gingiva and edentulous alveolar ridge (principal); I10 Essential (primary) hypertension; Z86.73 Personal history of transient ischemic attack (TIA), and cerebral infarction without residual deficits; Z98.890 Other specified postprocedural states
CPT/HCPCS: 99281

== ENCOUNTER 2021-05-02 10:09 | Emergency (ER) | payer MEDICARE ==
--- NOTE | 2021-05-02 11:37 | Emergency Department Report ---
ED Male HPI - General Chief complaint: Urogenital-Male Stated complaint: BLOODY STOOLS Time Seen by Provider: 05/02/21 11:09 Source: patient, family, old records reviewed Mode of arrival: Ambulatory Limitations: No Limitations - History of Present Illness Initial comments: 85 year old with a medical history of HTN, CVA, enlarged prostate, hyperlipide betzaida, gastric neoplasm status post surgical resection presents to the hospital with complaints of gross hematuria x1 this a.m. Patient denies difficulty urinating abdominal pain, flank pain, dysuria, nausea, vomiting, or fever. He is not know his current medication list is unsure if he is on blood thinners. As per previous records reviewed patient has a previous history of urinary retention, enlarged prostate, TURP, prostate biopsy, and hematuria. Patient states he takes 5 medications but cannot recall the name I called daughter on telephone for collateral information. She states that teresita alex has a known kidney mass. She states that they are "just watching it" and it has been identified as being cancerous or noncancerous. She has appointments every 4-month and has upcoming visit with Dr. Reza with [facility] regarding this mass. As per daughter patient medications include: metoprolol 25 mg 25 mg ER daily Losartan K 25 mg daily Pantoprazole 40 mg daily Flomax 0.4 mg nightly Eliquis 5 mg twice daily for pulmonary embolism diagnosed April 2020 Vitamin D 50,000 units daily weekly Vitamin B12 chewables Iron 65 mg daily Nitroglycerin sublingual as needed - Related Data Previous Rx's Medication Instructions Recorded Last Taken Type cefUROXime [Ceftin] 500 mg PO Q12H 7 Days tablet 05/02/21 Unknown Rx Allergies Allergy/AdvReac Type Severity Reaction Status Date / Time No Known Allergies Allergy Unverified 04/07/13 09:22 ED Review of Systems ROS: Stated complaint: BLOODY STOOLS Other details as noted in HPI Comment: All other systems reviewed and negative ED Past Medical Hx - Past Medical History Hx Hypertension: Yes Hx CVA: Yes Hx Pulmonary Embolism: Yes (April 2020) Additional medical history: enlarged prostate, stomach cancer - Surgical History Additional Surgical History: "prostate surgery" & "cataract surgery" - Social History Smoking Status: Never Smoker Substance Use Type: None - Medications Home Medications: Home Medications Medication Instructions Recorded Confirmed Last Taken Type cefUROXime [Ceftin] 500 mg PO Q12H 7 Days tablet 05/02/21 Unknown Rx ED Physical Exam - General Limitations: No Limitations - Other Other exam information: General: No acute distress Head: Atraumatic Eyes: normal appearance ENT: Moist mucous membranes Neck: Normal appearance, no midline tenderness Chest: Clear to auscultation bilaterally CV: Regular rate and rhythm Abdomen: Soft, normal bowel sounds, nontender, nondistended, no rebound or guarding : Uncircumcised, no penile lesions, no blood at the meatus, no testicular tenderness Back: Normal inspection Extremity: Normal inspection, full range of motion Neuro: Alert O x 3, no facial asymmetry, speech clear, no gross motor sensory deficit Psych: Appropriate behavior Skin: No rash ED Course Vital Signs 05/02/21 05/02/21 05/02/21 10:49 11:04 11:11 Temperature 98.1 F Pulse Rate 76 77 83 Respiratory 14 20 13 Rate Blood Pressure 170/104 Blood Pressure 155/107 [Right] O2 Sat by Pulse 99 97 97 Oximetry 05/02/21 05/02/21 05/02/21 11:15 11:16 12:01 Temperature 98.1 F Pulse Rate 83 69 Respiratory 13 9 L Rate Blood Pressure 170/104 160/100 Blood Pressure [Right] O2 Sat by Pulse 97 97 96 Oximetry 05/02/21 05/02/21 05/02/21 13:01 13:37 14:01 Temperature Pulse Rate 72 83 70 Respiratory 13 11 L 10 L Rate Blood Pressure 168/97 168/97 168/97 Blood Pressure [Right] O2 Sat by Pulse 97 98 99 Oximetry 05/02/21 14:31 Temperature Pulse Rate 72 Respiratory 13 Rate Blood Pressure 168/97 Blood Pressure [Right] O2 Sat by Pulse 99 Oximetry - Consultations Consultation #1: 05/02/21 16:17 Call initially placed at 15: 09 at [facility]. At 16: 17 Case d/w Dr Miner urologist at [facility], for Dr. Reza. States that patient may continue his Eliquis. Agrees with antibiotics. Recommend that he stays hydrated and follow-up as scheduled with his urologist. ED Medical Decision Making - Lab Data Result diagrams: 05/02/21 12:04 05/02/21 12:04 Lab Results 05/02/21 05/02/21 05/02/21 Range/Units 12:04 12:04 12:04 WBC 3.8 L (4.5-11.0) K/mm3 RBC 5.37 H (3.65-5.03) M/mm3 Hgb 12.2 (11.8-15.2) gm/dl Hct 40.3 (35.5-45.6) % MCV 75 L (84-94) fl MCH 23 L (28-32) pg MCHC 30 L (32-34) % RDW 16.8 H (13.2-15.2) % Plt Count 139 L (140-440) K/mm3 Lymph % (Auto) 46.0 H (13.4-35.0) % [place] % (Auto) 10.9 H (0.0-7.3) % Eos % (Auto) 3.0 (0.0-4.3) % Baso % (Auto) 0.8 (0.0-1.8) % Lymph # (Auto) 1.7 (1.2-5.4) K/mm3 [place] # (Auto) 0.4 (0.0-0.8) K/mm3 Eos # (Auto) 0.1 (0.0-0.4) K/mm3 Baso # (Auto) 0.0 (0.0-0.1) K/mm3 Seg Neutrophils % 39.3 L (40.0-70.0) % Seg Neutrophils # 1.5 L (1.8-7.7) K/mm3 PT 14.1 (12.2-14.9) Sec. INR 0.98 (0.87-1.13) APTT 33.4 (24.2-36.6) Sec. Sodium 142 (137-145) mmol/L Potassium 4.1 (3.6-5.0) mmol/L Chloride 107.7 H (98-107) mmol/L Carbon Dioxide 23 (22-30) mmol/L Anion Gap 15 mmol/L BUN 10 (9-20) mg/dL Creatinine 0.9 (0.8-1.3) mg/dL Estimated GFR > 60 ml/min BUN/Creatinine Ratio 11 % Glucose 93 (75-100) mg/dL Calcium 8.8 (8.4-10.2) mg/dL Urine Color (Yellow) Urine Turbidity (Clear) Urine pH (5.0-7.0) Ur Specific [place] (1.003-1.030) Urine Protein (Negative) mg/dL Urine Glucose (UA) (Negative) mg/dL Urine Ketones (Negative) mg/dL Urine Blood (Negative) Urine Nitrite (Negative) Urine Bilirubin (Negative) Urine Urobilinogen (<2.0) mg/dL Ur Leukocyte Esterase (Negative) Urine WBC (Auto) (0.0-6.0) /HPF Urine RBC (Auto) (0.0-6.0) /HPF 05/02/21 Range/Units 12:10 WBC (4.5-11.0) K/mm3 RBC (3.65-5.03) M/mm3 Hgb (11.8-15.2) gm/dl Hct (35.5-45.6) % MCV (84-94) fl MCH (28-32) pg MCHC (32-34) % RDW (13.2-15.2) % Plt Count (140-440) K/mm3 Lymph % (Auto) (13.4-35.0) % [place] % (Auto) (0.0-7.3) % Eos % (Auto) (0.0-4.3) % Baso % (Auto) (0.0-1.8) % Lymph # (Auto) (1.2-5.4) K/mm3 [place] # (Auto) (0.0-0.8) K/mm3 Eos # (Auto) (0.0-0.4) K/mm3 Baso # (Auto) (0.0-0.1) K/mm3 Seg Neutrophils % (40.0-70.0) % Seg Neutrophils # (1.8-7.7) K/mm3 PT (12.2-14.9) Sec. INR (0.87-1.13) APTT (24.2-36.6) Sec. Sodium (137-145) mmol/L Potassium (3.6-5.0) mmol/L Chloride (98-107) mmol/L Carbon Dioxide (22-30) mmol/L Anion Gap mmol/L BUN (9-20) mg/dL Creatinine (0.8-1.3) mg/dL Estimated GFR ml/min BUN/Creatinine Ratio % Glucose (75-100) mg/dL Calcium (8.4-10.2) mg/dL Urine Color Red (Yellow) Urine Turbidity Turbid (Clear) Urine pH 6.0 (5.0-7.0) Ur Specific [place] 1.016 (1.003-1.030) Urine Protein 100 mg/dl (Negative) mg/dL Urine Glucose (UA) Neg (Negative) mg/dL Urine Ketones Neg (Negative) mg/dL Urine Blood Lg (Negative) Urine Nitrite Neg (Negative) Urine Bilirubin Neg (Negative) Urine Urobilinogen < 2.0 (<2.0) mg/dL Ur Leukocyte Esterase Neg (Negative) Urine WBC (Auto) 60.0 H (0.0-6.0) /HPF Urine RBC (Auto) > 182.0 (0.0-6.0) /HPF - EKG Data -: EKG Interpreted by Sd EKG shows normal: sinus rhythm, intervals (Prolonged QTC), QRS complexes (Left bundle branch block) Rate: tachycardia (123) - EKG Data When compared to previous EKG there are: previous EKG unavailable - Radiology Data Radiology results: report reviewed CT abdomen pelvis w con INDICATION / CLINICAL INFORMATION: hematuria OMNIPAQUE 300 100ML. TECHNIQUE: Routine CT abdomen pelvis with IV contrast per routine. 100 mL Omnipaque [address] scans at this location are performed using CT dose reduction for ALARA by means of automated exposure control. COMPARISON: 03/25/2020 FINDINGS: Abdomen and pelvis: There is increasing interstitial thickening involving both lower lungs since the prior exam. The liver, gallbladder, spleen, pancreas adrenal glands and kidneys are unremarkable. There is postoperative changes near the distal gastric antrum. No free air or free fluid. Moderate stool burden throughout the colon. Urinary bladder is abnormal with prominent irregular thickening involving the posterior wall of the urinary bladder measuring up to 3 cm in diameter. This is similar to 03/25/2020. The prostate is also enlarged. Scattered atherosclerotic calcification throughout a nondilated abdominal aorta. Review of bone windows constraints mild thoracolumbar degenerative changes IMPRESSION: Abnormal appearance along the base of the urinary bladder suspicious for underlying neoplasm, similar to 03/25/2020. It is unclear if this represents a primary urinary bladder neoplasm versus underlying abnormality of the enlarged prostate. Cystoscopy would be useful for further evaluation. - Medical Decision Making 85-year-old male presents to the hospital hematuria. UA reveals elevated white cells and red cells therefore patient will be treated for UTI. Patient is on Eliquis for previous pulmonary embolism with normal H&H at this time. No signs of sepsis or septic shock. Patient received IV Rocephin in the ED. Patient does not have any pain or discomfort. Case discussed with [facility] urologist prior to discharge and Eliquis will be continued. Close outpatient follow-up advised with scheduled appointment in 2 days. Copy of results provided for follow-up. Patient's daughter contacted multiple times via phone regarding patient's case, diagnosis, plan, and discharge Critical Care Time: Yes Critical care time in (mins) excluding proc time.: 35 (Multiple attempts to contact urologist, discussed the case and pertinent data for continuity of care. Case also discussed multiple times with patient and daughter regarding hi story, diagnosis, and follow-up) Critical care attestation.: If time is entered above; I have spent that time in minutes in the direct care of this critically ill patient, excluding procedure time. ED Disposition Clinical Impression: Hematuria, UTI (urinary tract infection), Current use of [employer] anticoagulation Disposition: 01 HOME / SELF CARE / HOMELESS Is pt being admited?: No Does the pt Need Aspirin: No Condition: Stable Instructions: Hematuria, Adult, Urinary Tract Infection, Adult, Bleeding Precautions When on Anticoagulant Therapy, Adult Additional Instructions: Take the medication as prescribed. Follow-up with your doctor or doctor/clinic provided. Return if symptoms worsen as indicated by your discharge instructions. Prescriptions: cefUROXime [Ceftin] 500 mg PO Q12H 7 Days tablet Referrals: YUDI BECERRIL MD [Primary Care Provider] - 3-5 Days Rich Reza MD [Other] - 05/04/21 Time of Disposition: 16:26
[2021-05-02 12:33] LABS: Basophils % (Auto) 0.8 % (0.0-1.8); Eosinophils # (Auto) 0.1 K/mm3 (0.0-0.4); Lymphocytes # (Auto) 1.7 K/mm3 (1.2-5.4); Mean Corpuscular HGB Conc 30 % (32-34); Mean Corpuscular Volume 75 fl (84-94); Monocytes # (Auto) 0.4 K/mm3 (0.0-0.8); Monocytes % (Auto) 10.9 % (0.0-7.3); Platelet Count 139 K/mm3 (140-440); Red Blood Count 5.37 M/mm3 (3.65-5.03); Red Cell Distribution Width 16.8 % (13.2-15.2)
[2021-05-02 12:39] LABS: Hematocrit 40.3 % (35.5-45.6); Hemoglobin 12.2 gm/dl (11.8-15.2)
[2021-05-02 12:40] LABS: INR 0.98 (0.87-1.13); Partial Thromboplastin Time 33.4 Sec. (24.2-36.6)
[2021-05-02 12:45] LABS: BUN/Creatinine Ratio 11; Blood Urea Nitrogen 10 mg/dL (9-20); Calcium 8.8 mg/dL (8.4-10.2); Hemolysis Index 61
[2021-05-02 13:28] LABS: Bilirubin,Urine NEG (Negative); Blood,Urine LG (Negative); Urobilinogen,Urine < 2.0 mg/dL (<2.0)
[2021-05-02 13:33] LABS: RBC,Urine > 182.0 /HPF (0.0-6.0)
[2021-05-02 13:34] LABS: Color,Urine Red (Yellow)
--- NOTE | 2021-05-02 14:00 | Cat Scan Report ---
CT abdomen pelvis w con INDICATION / CLINICAL INFORMATION: hematuria OMNIPAQUE 300 100ML. TECHNIQUE: Routine CT abdomen pelvis with IV contrast per routine. 100 mL Omnipaque [address] scans at this location are performed using CT dose reduction for ALARA by means of automated exposure control . COMPARISON: 03/25/2020 FINDINGS: Abdomen and pelvis: There is increasing interstitial thickening involving both lower lungs since the prior exam. The liver, gallbladder, spleen, pancreas adrenal glands and kidneys are unremarkable. There is postop erative changes near the distal gastric antrum. No free air or free fluid. Moderate stool burden thro ughout the colon. Urinary bladder is abnormal with prominent irregular thickening involving the posterior wall of the u rinary bladder measuring up to 3 cm in diameter. This is similar to 03/25/2020. The prostate is also enlarged. Scattered atherosclerotic calcification throughout a nondilated abdominal aorta. Review of bone windows constraints mild thoracolumbar degenerative changes IMPRESSION: Abnormal appearance along the base of the urinary bladder suspicious for underlying neopl asm, similar to 03/25/2020. It is unclear if this represents a primary urinary bladder neoplasm versu s underlying abnormality of the enlarged prostate. Cystoscopy would be useful for further evaluation. Signer Name: Wallace García MD Signed: 05/02/2021 1:55 PM Workstation Name: [id number]
[2021-05-02] MEDS ORDERED: cefTRIAXone/NS 1 GM/50 ML 1 GM/50 ML BAG IV ONE (14:38)
[2021-05-02 16:55] VITALS: BP 166/98
== END 2021-05-02 16:55 | disposition home or self-care (01) ==
LOC: ED 10:09
DX: N39.0 Urinary tract infection, site not specified (principal); R31.9 Hematuria, unspecified; Z79.01 Long term (current) use of anticoagulants; I10 Essential (primary) hypertension; Z86.73 Personal history of transient ischemic attack (TIA), and cerebral infarction without residual deficits
CPT/HCPCS: 36415; 74177; 80048; 81001; 85025; 85610; 85730; 87086; 96365; 99291; J0696; Q9967

== ENCOUNTER 2021-06-30 18:37 | Emergency (ER) | payer MEDICARE ==
--- NOTE | 2021-06-30 19:03 | Emergency Department Report ---
ED Male HPI - General Chief complaint: Urogenital-Male Stated complaint: blood in urine Time Seen by Provider: 06/30/21 18:47 Source: EMS Mode of arrival: Stretcher Limitations: No Limitations - History of Present Illness Initial comments: Patient presents by EMS secondary to gross hematuria. He noticed bright red blood when he was urinating about 1 hour prior to arrival. He feels as though his bladder has gotten bigger and distended. He has no abdominal pain. Has no penile pain. There is no testicular pain. He has no history of trauma. Rodney alex states he is not bleeding from other places. He is not anticoagulated. He does have known gastric cancer however. Several months ago, this was diagnosed. That was diagnosed after he was vomiting blood. He is not vomiting blood now. This is all from the urine. - Related Data Home Medications Medication Instructions Recorded Confirmed Last Taken Apixaban [Eliquis] 5 mg PO BID 05/02/21 05/02/21 Unknown Cyanocobalamin (Vitamin B-12) 5,000 mcg PO 1XW 05/02/21 05/02/21 Unknown [Vitamin B12] Losartan [Cozaar] 25 mg PO QDAY 05/02/21 05/02/21 Unknown Metoprolol 25 mg PO DAILY 05/02/21 05/02/21 Unknown Pantoprazole [Protonix] 40 mg PO QDAY 05/02/21 05/02/21 Unknown Tamsulosin [Flomax] 0.4 mg PO QDAY 05/02/21 05/02/21 Unknown Vitamin D3 50,000UNIT CAP 1 tab PO 1XW 05/02/21 05/02/21 Unknown Previous Rx's Medication Instructions Recorded Last Taken Type cefUROXime [Ceftin] 500 mg PO Q12H 7 Days tablet 05/02/21 Unknown Rx Allergies Allergy/AdvReac Type Severity Reaction Status Date / Time No Known Allergies Allergy Unverified 04/07/13 09:22 ED Review of Systems ROS: Stated complaint: blood in urine Other details as noted in HPI Comment: All other systems reviewed and negative Constitutional: denies: fever Eyes: denies: eye pain ENT: denies: throat pain Respiratory: denies: cough Cardiovascular: denies: chest pain Endocrine: denies: unexplained weight loss Gastrointestinal: denies: abdominal pain Genitourinary: as per HPI Musculoskeletal: denies: back pain Skin: denies: rash Neurological: denies: headache Hematological/Lymphatic: denies: easy bruising ED Past Medical Hx - Past Medical History Hx Hypertension: Yes Hx CVA: Yes Hx Pulmonary Embolism: Yes (April 2020) Additional medical history: enlarged prostate, stomach cancer - Surgical History Additional Surgical History: "prostate surgery" & "cataract surgery" - Family History Family history: cancer - Social History Smoking Status: Never Smoker Substance Use Type: None - Medications Home Medications: Home Medications Medication Instructions Recorded Confirmed Last Taken Type Apixaban [Eliquis] 5 mg PO BID 05/02/21 05/02/21 Unknown History Cyanocobalamin (Vitamin B-12) 5,000 mcg PO 1XW 05/02/21 05/02/21 Unknown History [Vitamin B12] Losartan [Cozaar] 25 mg PO QDAY 05/02/21 05/02/21 Unknown History Metoprolol 25 mg PO DAILY 05/02/21 05/02/21 Unknown History Pantoprazole [Protonix] 40 mg PO QDAY 05/02/21 05/02/21 Unknown History Tamsulosin [Flomax] 0.4 mg PO QDAY 05/02/21 05/02/21 Unknown History Vitamin D3 50,000UNIT CAP 1 tab PO 1XW 05/02/21 05/02/21 Unknown History cefUROXime [Ceftin] 500 mg PO Q12H 7 Days tablet 05/02/21 Unknown Rx ED Physical Exam - General Limitations: No Limitations, Other (Pulse ox noted and normal) General appearance: alert, in no apparent distress - Head Head exam: Present: atraumatic, normocephalic - Eye Eye exam: Present: normal appearance, EOMI - ENT ENT exam: Present: mucous membranes dry, normal external ear exam - Neck Neck exam: Present: normal inspection. Absent: meningismus - Respiratory Respiratory exam: Present: normal lung sounds bilaterally. Absent: respiratory distress - Cardiovascular Cardiovascular Exam: Present: regular rate, normal rhythm - GI/Abdominal GI/Abdominal exam: Present: soft. Absent: distended, tenderness - Extremities Exam Extremities exam: Present: normal capillary refill - Back Exam Back exam: Absent: CVA tenderness (R), CVA tenderness (L) - Neurological Exam Neurological exam: Present: alert, oriented X3, CN II-XII intact, normal gait. Absent: motor sensory deficit - Psychiatric Psychiatric exam: Present: normal affect, normal mood - Skin Skin exam: Present: warm, dry ED Course Vital Signs 06/30/21 18:50 Temperature 98.4 F Pulse Rate 71 Respiratory 18 Rate Blood Pressure 185/95 [Left] O2 Sat by Pulse 100 Oximetry - Reevaluation(s) Reevaluation #1: 06/30/21 1850-EMS was met upon arrival. Bladder irrigation was ordered. Old records noted. Reevaluation #2: 06/30/21 20:33 UA is pending. Bladder irrigation is pending. This has not been started yet. I did speak with the daughter. The patient has a known bladder tumor that was being watched according to her. He has been followed primarily at [facility]. ED Medical Decision Making - Lab Data Result diagrams: 06/30/21 19:09 06/30/21 19:09 - Medical Decision Making Patient presents with gross hematuria. Etiology for this is felt to be likely related to this tumor in the bladder. That cannot be ascertained as of yet. Renal function is stable at this time. He does not have a significant anemia that would require emergent transfusion. If we cannot control bleeding, he would likely need to be transferred as we do not have urological services here. If the bleeding can be controlled, I do believe outpatient follow-up would be most appropriate. Critical Care Time: No Critical care attestation.: If time is entered above; I have spent that time in minutes in the direct care of this critically ill patient, excluding procedure time. ED Disposition Clinical Impression: Gross hematuria Disposition: 30 STILL A PATIENT Is pt being admited?: No Condition: Stable
[2021-06-30 19:38] LABS: BUN/Creatinine Ratio 16; Blood Urea Nitrogen 14 mg/dL (9-20); Calcium 9.5 mg/dL (8.4-10.2); Hemolysis Index 5
[2021-06-30 19:59] LABS: Hematocrit 41.2 % (35.5-45.6); Hemoglobin 12.8 gm/dl (11.8-15.2); Mean Corpuscular HGB Conc 31 % (32-34); Mean Corpuscular Volume 74 fl (84-94); Platelet Count 188 K/mm3 (140-440); Red Blood Count 5.57 M/mm3 (3.65-5.03)
[2021-06-30] MEDS ORDERED: SODIUM CHLORIDE 0.9% 1000 ML 1,000 ML ONE (20:55)
[2021-06-30 22:19] LABS: Anisocytosis 1+; Basophils % (Manual) 0 % (0.0-1.8); Total Cells Counted 100
[2021-06-30 22:20] LABS: Ovalocytes 1+; Platelet Estimate Consistent w Auto
--- NOTE | 2021-06-30 23:14 | Ultrasound Report ---
Bladder ultrasound INDICATION: Retention FINDINGS: There is a solid mass within the urinary bladder measuring 4.8 x 3.9 x 1.9 cm. IMPRESSION: Solid mass within the urinary bladder. This is been described on prior examinations and CT abdomen an d pelvis. Further workup with urology. Signer Name: Elias Mann MD Signed: 06/30/2021 11:09 PM Workstation Name: [id number]
[2021-07-01 02:14] VITALS: BP 150/84
== END 2021-07-01 02:06 | disposition short-term general hospital (02) ==
LOC: ED 18:37
DX: R31.0 Gross hematuria (principal); I10 Essential (primary) hypertension; I63.9 Cerebral infarction, unspecified; I26.99 Other pulmonary embolism without acute cor pulmonale; Z79.899 Other long term (current) drug therapy; Z98.890 Other specified postprocedural states
CPT/HCPCS: 36415; 76857; 80048; 85007; 85025; 99285; J7030; Q0162